=== PATIENT | female | born 1970 | race Caucasian/White ===

== ENCOUNTER → 2018-08-09 13:05 | Outpatient (CLI) | payer SELFPAY ==
[2018-08-09 15:38] LABS: Estradiol 53.4 pg/mL
[2018-08-09 15:50] LABS: Progesterone Level 0.14 ng/mL (See Comment)
== END ==
PROVIDERS: Visit Provider Obstetrics & Gynecology
DX: N94.6 Dysmenorrhea, unspecified (principal)
CPT/HCPCS: 36415; 82670; 84144

== ENCOUNTER → 2019-02-13 | Outpatient (CLI) | payer SELFPAY ==
[2019-02-13 11:05] LABS: Estradiol 92.9 pg/mL; Progesterone Level 9.72 ng/mL (See Comment)
== END | disposition home or self-care (01) ==
LOC: LAB 10:01
PROVIDERS: Family Provider Family Medicine; PCP Family Medicine; Referring Provider Obstetrics & Gynecology; Visit Provider Obstetrics & Gynecology
DX: N93.8 Other specified abnormal uterine and vaginal bleeding (principal); N94.4 Primary dysmenorrhea
CPT/HCPCS: 36415; 82670; 84144

== ENCOUNTER → 2019-07-23 13:22 | Outpatient (CLI) | payer SELFPAY | PROVIDERS: Visit Provider Obstetrics & Gynecology | DX: Z12.4 Encounter for screening for malignant neoplasm of cervix (principal) | CPT/HCPCS: 88175; G0145 ==

== ENCOUNTER → 2019-08-18 15:32 | Outpatient (CLI) | payer SELFPAY ==
--- NOTE | 2019-08-18 15:36 | BI_ITS ---
MAMMOGRAPHY - BILATERAL SCREENING 3-D TOMOSYNTHESIS REASON FOR EXAM: Female, 49 years old. Routine annual screening examination. PERTINENT HISTORY: Family history of breast cancer in mother. Taking progesterone for 15 years. TECHNIQUE: 2-D mammograms and 3-D Tomosynthesis of the breast (s) were performed. CAD was performed. COMPARISON: None. FINDINGS: The breast composition is heterogeneously dense that can obscure small breast masses. 3 cm in diameter partially obscured rounded mass in the central portion of the right breast most likely representing a cyst. Patient should return for compression spot views of this area. Ultrasound will also be needed. Benign calcifications. The left breast is normal. BI/SCREEN MAMM (CAD) W/ABBI BILAT IMPRESSION: 3 cm in diameter circumscribed mass in the central portion of the right breast likely representing a cyst. Patient should return for compression spot views and ultrasound of the right breast.. ASSESSMENT CATEGORY: BIRADS Category 0: Incomplete. Need additional imaging evaluation as above. A letter regarding these results will be sent to the patient by the facility within 30 days. FOLLOW UP RECOMMENDATION: Additional imaging recommended as above. (E) Approximately 10% of breast cancers are not detected by mammography. A normal mammogram should not delay biopsy of a clinically suspicious abnormality. Electronically Signed: Griffin Stanley MD at 17:46 EST , Service support ,
== END ==
PROVIDERS: Family Provider Family Medicine; PCP Family Medicine; Referring Provider Obstetrics & Gynecology; Visit Provider Obstetrics & Gynecology
DX: Z12.31 Encounter for screening mammogram for malignant neoplasm of breast (principal)
CPT/HCPCS: 77063; 77067

== ENCOUNTER → 2019-08-27 14:10 | Outpatient (CLI) | payer SELFPAY ==
--- NOTE | 2019-08-27 14:15 | BI_ITS ---
MAMMOGRAPHY - UNILATERAL DIAGNOSTIC: RIGHT BREAST REASON FOR EXAM: Female, 49 years old. Right breast mass. PERTINENT HISTORY: Mother with breast cancer. TECHNIQUE: Compression views of the right breast were obtained in the mediolateral and oblique views. CAD: Full Field Digital Mammography with Computer Added Detection was performed. COMPARISON: Comparison is made with prior mammogram dated August 18, 2019. FINDINGS: Breast Composition: The breasts are heterogeneously dense, which may obscure small masses. There is evidence of a 3 cm x 3.1 cm well-defined nodule in the retroareolar region of the right breast. Correlation with ultrasound is recommended. No other significant abnormalities are identified. BI/DIAG MAMM W/CAD, UNILAT IMPRESSION: 3 cm x 3.1 cm well-defined nodule in the retroareolar region of the right breast as described. Correlation with ultrasound is recommended. ASSESSMENT CATEGORY: BIRADS Category 0: Incomplete. Need additional imaging evaluation. A letter regarding these results will be sent to the patient by the facility within 30 days. Approximately 10% of breast cancers are not detected by mammography. A normal mammogram should not delay biopsy of a clinically suspicious abnormality. Electronically Signed: Terell Renee, at 15:22 EST , Service support ,
--- NOTE | 2019-08-27 14:15 | US_ITS ---
STUDY: ULTRASOUND BREAST - RIGHT REASON FOR EXAM: Female, 49 years old. Abnormal screening mammogram. TECHNIQUE: Axial and longitudinal images of the RIGHT breast were performed with a high resolution ultrasound transducer. # OF IMAGES: 46 COMPARISON: Comparison is made with prior mammogram done earlier today. FINDINGS: RIGHT Breast: The mammographic abnormality corresponds to a 2.9 cm x 4.3 cm x 0.9 cm cyst at the 11:00 position of the breast at 1 cm from the nipple. There is also evidence of a 5 mm x 4 mm x 9 mm hypoechoic nodular density posterior acoustical shadowing at the 10:00 position breast at 3 cm from nipple. A biopsy is recommended. US/Breast Limited Unilateral IMPRESSION: The palpable abnormality corresponds to a 2.9 cm x 4.3 cm x 0.9 cm cyst at the 11:00 position in the breast at 1 cm from the nipple. Suspicious subcentimeter nodule at the 10:00 position breast at 3 cm from nipple. Biopsy is recommended. ASSESSMENT CATEGORY: BIRADS Category 4: Suspicious - Biopsy Should Be Considered. A letter regarding these results will be sent to the patient by the facility within 30 days. Electronically Signed: Terell Renee, at 15:41 EST , Service support ,
== END ==
PROVIDERS: Family Provider Family Medicine; PCP Family Medicine; Referring Provider Obstetrics & Gynecology; Visit Provider Obstetrics & Gynecology
DX: N63.10 Unspecified lump in the right breast, unspecified quadrant (principal)
CPT/HCPCS: 76642; 77065

== ENCOUNTER → 2019-09-16 08:30 | Outpatient (CLI) | payer SELFPAY ==
--- NOTE | 2019-09-16 | IMM_PTH ---
PATIENT: ALETHA ROBB LOC: [facility] U#:[id number] AGE/SX: 55/F ROOM: RE09/16/[address]: Dr. Wilfredo Thakur MD : 1970 BED: DIS: SPEC #: [id number] RECD: 09/18/19 11:58 STATUS: JORGE REQ #: [id number] DEON: 09/16/19 00:[address]: Wilfredo Thakur DEPT: IMMUNOHISTOCHEMISTRY RECD BY: Virginia Burleson ENTERED: 09/18/19 11:58 SP TYPE: IMMUNO OTHR DR: Dr. Mendez Jay DO Tissues: Right breast, NOS Procedures: CALPONIN-1 (add) FARRELL-2 (add) E-CAD (add) HER2 BRANDON (add) KI-67 (add) P53 (add) MI (add) P40 (add) ER (initial) PHYSICIAN & INSTITUTION [place] [phone] SPECIMEN INFORMATION: Tissue Source: Right breast Clinical Info: Abnormal right breast ultrasound Specimen Number: [id number] CPT code: 72244, 29625 x7, 28924 x3 METHODOLOGY: Deparaffinized sections of prefer/formalin-fixed tissue or PAP/DQ stained slides are incubated with monoclonal/polyclonal antibodies/oligonucleotide probes. Localization is made via biotin free immunoperoxidase method. Appropriate controls are performed and reacted as expected. Results on target cell population are indicated in the following table: RESULTS: ANTIBODY / CLONE RESULT P53 (DO-7) positive, 5% dim Ki-67 (30-9) positive, 5% CK8 (39xiyeM59) positive CK5-6 (D5 & 1684) negative Calponin-1 (TK388Q) negative P40 (BC28) negative E-Cad (ECH-6) positive FARRELL-2 (SP21) positive MORPHOMETRIC ANALYSIS ER (clone 6F11) >95%, strong intensity MI (clone 16/1E2) >95%, strong intensity Her-2Neu (clone CB11) 1+ The prognostic test for HER2 is performed on formalin-fixed paraffin embedded tissue. A 3+ (positive) staining pattern is defined as intense, homogeneous, complete, circumferential membranous staining in >10% of contiguous tumor cells. A similar weak (2+) staining pattern is interpreted as equivocal. TYLER follow-up testing is recommended for all equivocal cases. Positivity/negativity for ER/MI is reported if > or < 1% of the tumor cells are immuno- reactive, respectively. The ASCO/CAP criteria is used for scoring. Reference: Journal of Clinical Oncology, 2013; 31:6254-4330 & 2010; 16:2274-5854. Duration of fixation: 35 Hrs; Sample Adequate: Yes. These assays have not been validated on decalcified tissues. Results should be interpreted with caution given the likelihood of false negativity on decalcified specimens. These tests were developed and their performance characteristics determined by [facility]. They may not have been cleared or approved by the U.S. Food and Drug Administration. The FDA has determined that such clearance or approval is not necessary. The above immunohistochemical/dualISH markers are ordered and reviewed by the Pathologist. INTERPRETATION: Right breast, ultrasound-guided needle core biopsy: Invasive ductal carcinoma, grade 2/3. Positive for estrogen receptors (favorable prognostic indicator). Positive for progesterone receptors (favorable prognostic indicator). Negative for overexpression of [id number]. AM:juhi 09/19/19
--- NOTE | 2019-09-16 | BRBX_PTH ---
PATIENT: ALETHA ROBB LOC: [facility] U#:[id number] AGE/SX: 55/F ROOM: RE09/16/[address]: Dr. Wilfredo Thakur MD : 1970 BED: DIS: SPEC #: [id number] RECD: 09/16/19 11:56 STATUS: JORGE REBetty #: [id number] DEON: 09/16/19 00:[address]: Wilfredo Thakur DEPT: SURGICAL PATHOLOGY RECD BY: Emanuel Villegas ENTERED: 09/16/19 11:57 SP TYPE: BREAST BX OTHR DR: Dr. Mendez Jay DO Tissues: Right breast, NOS Procedures: Surgery Specimen Level IV HEADER OPERATION: Ultrasound-guided needle core biopsy right breast PRE-OP DIAGNOSIS: Abnormal right breast ultrasound TISSUE SUBMITTED: Right breast tissue FIXATION TIME: 35 hours MICROSCOPIC DIAGNOSIS Right breast, ultrasound-guided needle core biopsy: Invasive ductal carcinoma with the following characteristics: Maximal length - 7 millimeters Nuclear grade - 2/3 See comment. AM:juhi 09/18/19 COMMENT ER/LA/Gea6dmq studies are being performed on sections of tumor and the results from this study will be reported separately ([id number]). MICROSCOPIC DESCRIPTION Slides are reviewed. GROSS DESCRIPTION Received in fixative is one container labeled with the patient's name and designated right breast biopsy. The specimen consists of multiple elongated fragments of cervantes-yellow fibroadipose tissue that in aggregate measure 2 x 0.4 x 0.1 cm. The entire specimen is submitted in one cassette. / SJ:juhi 09/16/19 TC:0 CPT: 16746
[2019-09-16 08:23] VITALS: BMI 31.7
== END ==
PROVIDERS: Family Provider Family Medicine; PCP Family Medicine; Referring Provider Surgery; Visit Provider Surgery
DX: R92.8 Other abnormal and inconclusive findings on diagnostic imaging of breast (principal)
CPT/HCPCS: 88305; 88341; 88342

== ENCOUNTER → 2019-09-23 10:01 | Outpatient (CLI) | payer SELFPAY ==
[2019-09-16 08:23] VITALS: BMI 31.7
--- NOTE | 2019-09-16 08:51 | HP_ITS ---
Intake Vital Signs 09/16/19 Height 5 ft 9.5 in 09/16/19 Weight: 218 lb 09/16/19 BMI 31.7 09/16/19 Respiration 18 Intake Visit Reasons: R BRST/KIMAD IV--biopsy !! 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 Is patient in pain?: No Allergies doxycycline Allergy (Mild, Verified 09/16/19 08:24) Unknown prochlorperazine [From Compazine] Allergy (Mild, Verified 09/16/19 08:24) Unknown Medications calcium carb 333 mg-vit D3 133 unit-mag ox 133 mg-zinc oxide 5 mg tab tab PO 09/16/19 [History] dietary supp combo no.21 190 mg-calcium phosphate 85 mg calcium tablet tab PO 09/16/19 [History] estradiol 1 mg-progesterone 100 mg capsule 1 cap PO QPM 09/16/19 [History Confirmed 09/16/19] PFSH Medical History Basal cell carcinoma (Acute) Surgical History History of laparoscopic appendectomy (Acute) Hx laparoscopic cholecystectomy (Acute) S/P Mohs surgery for basal cell carcinoma (Acute) Status post Achilles tendon repair (Acute) Family History Mother Heart disease Hypertension Breast cancer, Onset Age: 74 Father Heart disease Hypertension Social History (Updated 09/16/19 @ 08:58 by Wilfredo Thakur MD) Smoking Status: Never smoker alcohol intake: never HPI HPI HPI: ALETHA ROBB, is a 49 F who presents to the office today for HPI HPI Surgical H&P: Yes HPI: ALETHA ROBB, is a 49 F who presents to the office today for surgical consultation regarding abnormal breast imaging. 49-year-old female. G4, . Menarche at age 10. First child was born when she was 23. She did breast-feed. No history of previous breast biopsies. She states that she has been estrogen dominant. Dr. Hugo has had her on progesterone cream to help treat bleeding and cramping. This is been ongoing for 1 to 1-1/2 years. Family history is notable that her mother had breast cancer in her 70s. She apparently did not of breast cancer. The patient is never had a previous colonoscopy. Routine imaging was obtained below. The patient had no symptoms. The pertinent findings below suggest that she has a cyst in the upper quadrant right breast 11 o'clock position. The cyst measures 2.9 x 4.3 x 0.9 cm. She has a indeterminant density based upon ultrasound at the 10 o'clock position right breast +3 cm. This measures 0.5 x 0.4 x 0.9 cm In addition on mammogram there were microcalcifications laying in the slightly upper lateral position of the right breast BI-RADS Category 4. It is not clear whether the microcalcifications correlate with the density seen on ultrasound at the 10 o'clock position. puter Aided Diagnostic [facility] Imaging Services [address] [place] [address] DIAG MAMM W/CAD, UNILAT MR#: [id number] Name: ALETHA ROBB [facility] #:[id number] : 1970F 49 From: Terell Renee MD PCP:Mendez Jay, Status:[facility] Study:DIAG MAMM W/CAD, UNILAT Date of Exam:08/27/19 Exam#[id number] Ordering Dr: Dianna Hugo MD ADDENDUM by Terell Renee MD on 08/27/19 at 1210 ADDENDUM This is an addendum report. Microcalcifications are seen in the slightly upper lateral portion of the right breast. Biopsy is recommended. BIRADS Category 4. Electronically Signed: Terell Renee, at 15:42 EST , Service support , 08/27/19 1542 Date cc: Mendez Jay DO; Dianna Hugo MD ~* Signed ADDENDUM by Terell Renee MD on 08/27/19 at 1542 BI/DIAG MAMM W/CAD, UNILAT 08/27/19 1549 Date cc: Mendez Jay DO; Dianna Hugo MD ~* Signed MAMMOGRAPHY - UNILATERAL DIAGNOSTIC: RIGHT BREAST REASON FOR EXAM: Female, 49 years old. Right breast mass. PERTINENT HISTORY: Mother with breast cancer. TECHNIQUE: Compression views of the right breast were obtained in the mediolateral and oblique views. CAD: Full Field Digital Mammography with Computer Added Detection was performed. COMPARISON: Comparison is made with prior mammogram dated August 18, 2019. FINDINGS: Breast Composition: The breasts are heterogeneously dense, which may obscure small masses. There is evidence of a 3 cm x 3.1 cm well-defined nodule in the retroareolar region of the right breast. Correlation with ultrasound is recommended. No other significant abnormalities are identified. BI/DIAG MAMM W/CAD, UNILAT IMPRESSION: 3 cm x 3.1 cm well-defined nodule in the retroareolar region of the right breast as described. Correlation with ultrasound is recommended. ASSESSMENT CATEGORY: BIRADS Category 0: Incomplete. Need additional imaging evaluation. A letter regarding these results will be sent to the patient by the facility within 30 days. Approximately 10% of breast cancers are not detected by mammography. A normal mammogram should not delay biopsy of a clinically suspicious abnormality. Electronically Signed: Terell Renee, at 15:22 EST , Service support , CC: Mendez Jay DO; Dianna Hugo MD ~ High School Coach: Signed [facility] Imaging Services [address] [place] [address] Breast Limited Unilateral MR#: [id number] Name: ALETHA ROBB [facility] #:[id number] : 1970F 49 From: Terell Renee MD PCP:Mendez Jay DO Status:REG CLI Study:Breast Limited Unilateral Date of Exam:08/27/19 Exam#[id number] Ordering Dr: Dianna Hugo MD STUDY: ULTRASOUND BREAST - RIGHT REASON FOR EXAM: Female, 49 years old. Abnormal screening mammogram. TECHNIQUE: Axial and longitudinal images of the RIGHT breast were performed with a high resolution ultrasound transducer. # OF IMAGES: 46 COMPARISON: Comparison is made with prior mammogram done earlier today. FINDINGS: RIGHT Breast: The mammographic abnormality corresponds to a 2.9 cm x 4.3 cm x 0.9 cm cyst at the 11:00 position of the breast at 1 cm from the nipple. There is also evidence of a 5 mm x 4 mm x 9 mm hypoechoic nodular density posterior acoustical shadowing at the 10:00 position breast at 3 cm from nipple. A biopsy is recommended. US/Breast Limited Unilateral IMPRESSION: The palpable abnormality corresponds to a 2.9 cm x 4.3 cm x 0.9 cm cyst at the 11:00 position in the breast at 1 cm from the nipple. Suspicious subcentimeter nodule at the 10:00 position breast at 3 cm from nipple. Biopsy is recommended. ASSESSMENT CATEGORY: BIRADS Category 4: Suspicious - Biopsy Should Be Considered. A letter regarding these results will be sent to the patient by the facility within 30 days. Electronically Signed: Terell Renee, at 15:41 EST , Service support , ROS General General: No weight change, appetite, fatigue, colon cancer, breast cancer or weakness HEENT HEENT: No difficulty swallowing, eye injury, eye surgery, swollen glands or hoarseness Endo Endocrine: No thyroid disease, diabetes mellitus, thyroid cancer, Hair loss, heat intolerance or cold intolerance Skin Skin: Yes changing moles; no rash Breast Breast: Yes abnormal mammogram and abnormal US; no left breast lump, right breast lump, nipple discharge, breast pain or breast enlargement Musc Musculoskeletal: No back problems, arthritis, rheumatoid arthritis, gout or joint pain Cardio Cardiovascular: No murmur, pacemaker, heart disease, atrial fibrillation, high blood pressure, heart attack, heart stent, palpitations, shortness of breat with exertion or chest pain Psych Psychiatric: No depression, anxiety or hearing voices Resp Respiratory: No shortness of breath, No sleep apnea, No cough, No COPD, No asthma, No emphysema, No wheezing Gastro Gastrointestinal: No abdominal pain, No nausea or vomiting, No diarrhea, No constipation, No blood in stool, No acid reflux, No hemorrhoids, No ulcers, No gallbladder problem, No black,tarry stools Irineo Hematologic: No blood thinners, No blood disorders, No bleeding, No anemia, No blood clots Neuro Neurologic: No system reviewed and no additional complaints, except as docu, No as per HPI, No abnormal walking, No abnormal hearing, No abnormal movements, No abnormal speech, No behavioral changes, No burning sensations, No confusion, No seizure-like activity, No unsteadiness, No dizziness, No localized weakness, No frequent falls, No headache(s), No lack of coordination, No loss of vision, No memory loss, No numbness, No other visual disturbances, No radiating pain, No restless legs, No sensory deficit, No fainting, No tingling, No tremor(s), No weakness, No other Exam Const General: cooperative, healthy appearing, comfortable, no acute distress Nutritional Appearance: obese Orientation: alert, awake HENNY Head: normal to inspection Chest Breast Palpation: No nipple discharge Other: Right breast: Very diffuse fibrous dense throughout. Nondescript fullness upper outer quadrant right breast. No nipple discharge. No axillary or clavicular adenopathy Left breast: Again diffusely fibrous dense throughout. Unable to palpate any masses. No axillary or clavicular adenopathy Resp Effort & Inspection: normal respiratory effort Auscultation: clear to auscultation bilaterally Cardio Rate: regular rate Rhythm: regular rhythm Heart Sounds: no murmurs GI Palpation: soft, no hepatosplenomegaly Auscultation: normal bowel sounds Extrem General: no calf tenderness bilaterally Psych Affect: normal affect Office Procedures Biopsy Provider Documentation Procedure note Ultrasound-guided needle core biopsy upper outer quadrant right breast 10 o'clock position +3 cm Ultrasound-guided fine-needle aspiration upper outer quadrant right breast 11 o'clock position +1 cm cystic lesion Timeout and informed consent was obtained. The patient taken the procedure room placed upon the table with her right shoulder roll. The upper quadrant right breast was sterilely prepped and draped. The vague triangular density upper inner quadrant right breast 10:00 was position +3 cm was felt to been identified. Under ultrasound guidance 1% lidocaine mixed 50-50 was 0.5% Marcaine was instilled as a local anesthetic. A total of 10 cc was used. A small stab incision was created. A 14-gauge Monopty needle was advanced to prefire depth. Pre-and post fire films were obtained. 6 cores were obtained. A marking clip was left in place. She tolerated the procedure well. The specimens was placed immediately into formalin. Final pathology is pending. She was given activity and wound care instructions. I then inspected the cystic lesion in the upper inner quadrant right breast 11 o'clock position +1 cm. Again local was instilled. A 22-gauge needle was advanced into the lesion and 9 cc of light cervantes fluid was obtained. This was inspected and discarded. The cyst was aspirated to completion. Wilfredo Thakur M.D., F.A.C.S. Biopsy Breast Biopsy: [id number] US Guidance Procedure Time Out Time Out Informed consent given: Yes Consent signed: Yes Time out checklist: patient, procedure, site marked/identified, positioning of patient, supplies available, allergies confirmed, team agrees on procedure Time out staff in room: Yes Time out verified: Yes Time out date: 09/16/19 Time out time: 08:20 Assessment & Plan Problems 1. Abnormal ultrasound of breast R92.8 Plan I have discussed with the patient 3 separate findings. Simple cyst upper outer quadrant right breast 11 o'clock position +1 cm. Benign and aspirated to resolution Vague triangular density seen on ultrasound upper outer quadrant right breast 10 o'clock position +3 cm. Core biopsies performed. Pathology pending. Microcalcifications clustered upper outer quadrant right breast. Stereotactic needle core biopsy recommended and will be scheduled. It is not clear to me but the microcalcifications may actually be in the same location as the 10 o'clock position +3 cm lesion. Subsequent to the stereotactic biopsy the patient will then have additional surgical follow-up. In the interim I have asked her to hold her estradiol progesterone treatment CC: Dr. Hugo and Dr. Mendez Jay \Wilfredo Thakur M.D., F.A.C.S. Orders Orders: Biopsy Today R92.8 Coding Level of Care Code Attention Herbie Diagnoses Abnormal ultrasound of breast R92.8 Additional Codes Biopsy - Breast Biopsy: 04208 US Guidance (57421) 09/16/19 0858 <Electronically signed by Wilfredo wasserman MD> Date _ Wilfredo Thakur MD Patient's ultrasound guided core biopsy shows invasive ductal carcinoma. We will proceed with a stereotactic needle core biopsy to investigate whether the microcalcifications are associated with the previous density identified on ultrasound. Wilfredo Thakur M.D., F.A.C.S.
--- NOTE | 2019-09-23 | BRBX_PTH ---
PATIENT: ALETHA ROBB LOC: [facility] U#:[id number] AGE/SX: 55/F ROOM: RE09/23/[address]: Dr. Wilfredo Thakur MD : 1970 BED: DIS: SPEC #: [id number] RECD: 09/23/19 13:20 STATUS: JORGE JAVIER #: [id number] DEON: 09/23/19 00:[address]: Wilfredo Thakur DEPT: SURGICAL PATHOLOGY RECD BY: Emanuel Villegas ENTERED: 09/23/19 13:20 SP TYPE: BREAST BX OTHR DR: Dr. Mendez Jay DO Tissues: Right breast, NOS Procedures: Surgery Specimen Level IV HEADER OPERATION: Right breast stereotactic biopsy PRE-OP DIAGNOSIS: Microcalcifications upper lateral portion of right breast TISSUE SUBMITTED: Right breast ISCHEMIC TIME: 1 minute FIXATION TIME: 32.5 hours MICROSCOPIC DIAGNOSIS Right breast, microcalcifications upper lateral portion, stereotactic core biopsy: Minute foci of invasive ductal carcinoma (0.2 cm in greatest length). Focal intraductal hyperplasia without atypia and with microcalcifications. See comment. MARY:juhi 09/25/19 COMMENT Please make reference to previous specimen ([id number]) right breast, ultrasound-guided needle core biopsy with diagnosis of invasive ductal carcinoma. Immunohistochemistry ([id number]) supports the above diagnosis. Case has been reviewed in consultation with Dr. Romero who concurs with the above diagnosis. IDC:AM MICROSCOPIC DESCRIPTION Slides are reviewed. GROSS DESCRIPTION Received is one container labeled with the patient's name and not further designated. The specimen consists of multiple irregular and elongated fragments of cervantes-yellow soft tissue that in aggregate measure 3 x 1.7 x 0.2 cm. The specimen is totally submitted in one cassette. / AM:juhi 09/23/19 TC:0 CPT: 11168
--- NOTE | 2019-09-23 | IMM_PTH ---
PATIENT: ALETHA ROBB LOC: [facility] U#:[id number] AGE/SX: 55/F ROOM: RE09/23/[address]: Dr. Wilfredo Thakur MD : 1970 BED: DIS: SPEC #: [id number] RECD: 09/25/19 12:58 STATUS: JORGE REQ #: [id number] DEON: 09/23/19 00:[address]: Wilfredo Thakur DEPT: IMMUNOHISTOCHEMISTRY RECD BY: Virginia Burleson ENTERED: 09/25/19 12:59 SP TYPE: IMMUNO OTHR DR: Dr. Mendez Jay DO Tissues: Right breast, NOS Procedures: Calponin-1(initial) P40 (add) PHYSICIAN & INSTITUTION [place] [id number] SPECIMEN INFORMATION: Tissue Source: Right breast Clinical Info: Microcalcifications upper lateral portion of right breast Specimen Number: [id number] CPT code: 61430, 38415 METHODOLOGY: Deparaffinized sections of prefer/formalin-fixed tissue or PAP/DQ stained slides are incubated with monoclonal/polyclonal antibodies/oligonucleotide probes. Localization is made via biotin free immunoperoxidase method. Appropriate controls are performed and reacted as expected. Results on target cell population are indicated in the following table: RESULTS: ANTIBODY / CLONE RESULT Calponin-1 (CC003X) negative * P40 (BC28) negative * *?Positive in the area of intraductal hyperplasia. These tests were developed and their performance characteristics determined by [facility]. They may not have been cleared or approved by the [place] Food and Drug Administration. The FDA has determined that such clearance or approval is not necessary. The above immunohistochemical/dualISH markers are ordered and reviewed by the Pathologist. INTERPRETATION: Right breast, upper lateral portion microcalcifications, stereotactic core biopsy: Minute foci invasive ductal carcinoma. Focal intraductal hyperplasia without atypia. SJ:juhi 09/26/19
--- NOTE | 2019-09-23 11:25 | PCM.OPRPT ---
Problem List (1) Abnormal mammogram of right breast Status: Acute Report of Operation Date of Procedure: 09/23/19 Pre-Operative Diagnosis: Abnormal mammogram with clustered calcifications upper outer quadrant right breast Post-Operative Diagnosis: Same Surgery/Procedure Performed:: Stereotactic needle core biopsy upper outer quadrant right breast Description of Surgical Findings:: Timeout and informed consent was obtained. 49-year-old female was taken to the stereotactic unit. She was placed prone on the table. The right breast was placed in a lateral medial view. Stereotactic images were obtained. Target on senior vice president & general counsel selected replacing image 2. Digital information obtained on a single target site. Breast was prepped with Betadine. 1% lidocaine was used as local anesthetic. A total 10 cc was used. A small stab incision was created. A 10-gauge resolved needle was advanced to prefire depth. Prefire films were obtained demonstrating adequate localization. The device was fired. 6 cores were obtained. Specimen mammograms were obtained. The microcalcifications present on the pre-film were present within cores 1 and 2. A mini marking clip was left in position at the 11 o'clock position. On fast view demonstrated good localization with a marking clip and absence of the previous calcifications. It is of note that this marking clip is very close to the ultrasound place clip performed because of the ultrasound identified density. She was released from the device. Pressure was held for hemostasis. Steri-Strip Telfa OpSite dressing applied. The specimens were immediately transferred to formalin. The pathology on the ultrasound-guided biopsy is invasive ductal carcinoma. The patient has an office follow-up scheduled to plan definitive approach. It would appear that the area of microcalcifications is in close proximity to the ultrasound identified density. Specimens cores. Drains none. Blood loss minimal. Wilfredo Thakur M.D., F.A.C.S. Type of Anesthesia:: Local
== END ==
PROVIDERS: Family Provider Family Medicine; PCP Family Medicine; Referring Provider Surgery; Visit Provider Surgery
DX: C50.411 Malignant neoplasm of upper-outer quadrant of right female breast (principal); Z80.3 Family history of malignant neoplasm of breast
CPT/HCPCS: 19081; 88305; 88341; 88342; J7050

== ENCOUNTER 2019-10-13 07:29 | Day surgery (SDC) | payer SELFPAY ==
--- NOTE | 2019-09-16 08:51 | HP_ITS ---
Intake Vital Signs 09/16/19 Height 5 ft 9.5 in 09/16/19 Weight: 218 lb 09/16/19 BMI 31.7 09/16/19 Respiration 18 Intake Visit Reasons: R BRST/KIMAD IV--biopsy !! 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 Is patient in pain?: No Allergies doxycycline Allergy (Mild, Verified 09/16/19 08:24) Unknown prochlorperazine [From Compazine] Allergy (Mild, Verified 09/16/19 08:24) Unknown Medications calcium carb 333 mg-vit D3 133 unit-mag ox 133 mg-zinc oxide 5 mg tab tab PO 09/16/19 [History] dietary supp combo no.21 190 mg-calcium phosphate 85 mg calcium tablet tab PO 09/16/19 [History] estradiol 1 mg-progesterone 100 mg capsule 1 cap PO QPM 09/16/19 [History Confirmed 09/16/19] PFSH Medical History Basal cell carcinoma (Acute) Surgical History History of laparoscopic appendectomy (Acute) Hx laparoscopic cholecystectomy (Acute) S/P Mohs surgery for basal cell carcinoma (Acute) Status post Achilles tendon repair (Acute) Family History Mother Heart disease Hypertension Breast cancer, Onset Age: 74 Father Heart disease Hypertension Social History (Updated 09/16/19 @ 08:58 by Wilfredo Thakur MD) Smoking Status: Never smoker alcohol intake: never HPI HPI HPI: ALETHA ROBB, is a 49 F who presents to the office today for HPI HPI Surgical H&P: Yes HPI: ALETHA ROBB, is a 49 F who presents to the office today for surgical consultation regarding abnormal breast imaging. 49-year-old female. G4, . Menarche at age 10. First child was born when she was 23. She did breast-feed. No history of previous breast biopsies. She states that she has been estrogen dominant. Dr. Hugo has had her on progesterone cream to help treat bleeding and cramping. This is been ongoing for 1 to 1-1/2 years. Family history is notable that her mother had breast cancer in her 70s. She apparently did not of breast cancer. The patient is never had a previous colonoscopy. Routine imaging was obtained below. The patient had no symptoms. The pertinent findings below suggest that she has a cyst in the upper quadrant right breast 11 o'clock position. The cyst measures 2.9 x 4.3 x 0.9 cm. She has a indeterminant density based upon ultrasound at the 10 o'clock position right breast +3 cm. This measures 0.5 x 0.4 x 0.9 cm In addition on mammogram there were microcalcifications laying in the slightly upper lateral position of the right breast BI-RADS Category 4. It is not clear whether the microcalcifications correlate with the density seen on ultrasound at the 10 o'clock position. puter Aided Diagnostic [facility] [address] [place] [address] DIAG MAMM W/CAD, UNILAT MR#: [id number] Name: ALETHA ROBB [facility] #:[id number] : 1970F 49 From: Terell Renee MD PCP:Mendez Jay, Status:[facility] Study:DIAG MAMM W/CAD, UNILAT Date of Exam:08/27/19 Exam#[id number] Ordering Dr: Dianna Hugo MD ADDENDUM by Terell Renee MD on 08/27/19 at 3782 ADDENDUM This is an addendum report. Microcalcifications are seen in the slightly upper lateral portion of the right breast. Biopsy is recommended. BIRADS Category 4. Electronically Signed: Terell Renee, at 15:42 EST , Service support , 08/27/19 1542 Date cc: Mendez Jay DO; Dianna Hugo MD ~* Signed ADDENDUM by Terell Renee MD on 08/27/19 at 1542 BI/DIAG MAMM W/CAD, UNILAT 08/27/19 1549 Date cc: Mendez Jay DO; Dianna Hugo MD ~* Signed MAMMOGRAPHY - UNILATERAL DIAGNOSTIC: RIGHT BREAST REASON FOR EXAM: Female, 49 years old. Right breast mass. PERTINENT HISTORY: Mother with breast cancer. TECHNIQUE: Compression views of the right breast were obtained in the mediolateral and oblique views. CAD: Full Field Digital Mammography with Computer Added Detection was performed. COMPARISON: Comparison is made with prior mammogram dated August 18, 2019. FINDINGS: Breast Composition: The breasts are heterogeneously dense, which may obscure small masses. There is evidence of a 3 cm x 3.1 cm well-defined nodule in the retroareolar region of the right breast. Correlation with ultrasound is recommended. No other significant abnormalities are identified. BI/DIAG MAMM W/CAD, UNILAT IMPRESSION: 3 cm x 3.1 cm well-defined nodule in the retroareolar region of the right breast as described. Correlation with ultrasound is recommended. ASSESSMENT CATEGORY: BIRADS Category 0: Incomplete. Need additional imaging evaluation. A letter regarding these results will be sent to the patient by the facility within 30 days. Approximately 10% of breast cancers are not detected by mammography. A normal mammogram should not delay biopsy of a clinically suspicious abnormality. Electronically Signed: Terell Renee, at 15:22 EST , Service support , CC: Mendez Jay DO; Dianna Hugo MD ~ Cold Work Operator: Signed [facility] [address] [place] [address] Breast Limited Unilateral MR#: [id number] Name: ALETHA ROBB [facility] #:[id number] : 1970F 49 From: Terell Renee MD PCP:Mendez Jay DO Status:REG CLI Study:Breast Limited Unilateral Date of Exam:08/27/19 Exam#[id number] Ordering Dr: Dianna Hugo MD STUDY: ULTRASOUND BREAST - RIGHT REASON FOR EXAM: Female, 49 years old. Abnormal screening mammogram. TECHNIQUE: Axial and longitudinal images of the RIGHT breast were performed with a high resolution ultrasound transducer. # OF IMAGES: 46 COMPARISON: Comparison is made with prior mammogram done earlier today. FINDINGS: RIGHT Breast: The mammographic abnormality corresponds to a 2.9 cm x 4.3 cm x 0.9 cm cyst at the 11:00 position of the breast at 1 cm from the nipple. There is also evidence of a 5 mm x 4 mm x 9 mm hypoechoic nodular density posterior acoustical shadowing at the 10:00 position breast at 3 cm from nipple. A biopsy is recommended. US/Breast Limited Unilateral IMPRESSION: The palpable abnormality corresponds to a 2.9 cm x 4.3 cm x 0.9 cm cyst at the 11:00 position in the breast at 1 cm from the nipple. Suspicious subcentimeter nodule at the 10:00 position breast at 3 cm from nipple. Biopsy is recommended. ASSESSMENT CATEGORY: BIRADS Category 4: Suspicious - Biopsy Should Be Considered. A letter regarding these results will be sent to the patient by the facility within 30 days. Electronically Signed: Terell Renee, at 15:41 EST , Service support , ROS General General: No weight change, appetite, fatigue, colon cancer, breast cancer or weakness HEENT HEENT: No difficulty swallowing, eye injury, eye surgery, swollen glands or hoarseness Endo Endocrine: No thyroid disease, diabetes mellitus, thyroid cancer, Hair loss, heat intolerance or cold intolerance Skin Skin: Yes changing moles; no rash Breast Breast: Yes abnormal mammogram and abnormal US; no left breast lump, right breast lump, nipple discharge, breast pain or breast enlargement Musc Musculoskeletal: No back problems, arthritis, rheumatoid arthritis, gout or joint pain Cardio Cardiovascular: No murmur, pacemaker, heart disease, atrial fibrillation, high blood pressure, heart attack, heart stent, palpitations, shortness of breat with exertion or chest pain Psych Psychiatric: No depression, anxiety or hearing voices Resp Respiratory: No shortness of breath, No sleep apnea, No cough, No COPD, No asthma, No emphysema, No wheezing Gastro Gastrointestinal: No abdominal pain, No nausea or vomiting, No diarrhea, No constipation, No blood in stool, No acid reflux, No hemorrhoids, No ulcers, No gallbladder problem, No black,tarry stools Irineo Hematologic: No blood thinners, No blood disorders, No bleeding, No anemia, No blood clots Neuro Neurologic: No system reviewed and no additional complaints, except as docu, No as per HPI, No abnormal walking, No abnormal hearing, No abnormal movements, No abnormal speech, No behavioral changes, No burning sensations, No confusion, No seizure-like activity, No unsteadiness, No dizziness, No localized weakness, No frequent falls, No headache(s), No lack of coordination, No loss of vision, No memory loss, No numbness, No other visual disturbances, No radiating pain, No restless legs, No sensory deficit, No fainting, No tingling, No tremor(s), No weakness, No other Exam Const General: cooperative, healthy appearing, comfortable, no acute distress Nutritional Appearance: obese Orientation: alert, awake HENGA Head: normal to inspection Chest Breast Palpation: No nipple discharge Other: Right breast: Very diffuse fibrous dense throughout. Nondescript fullness upper outer quadrant right breast. No nipple discharge. No axillary or clavicular adenopathy Left breast: Again diffusely fibrous dense throughout. Unable to palpate any masses. No axillary or clavicular adenopathy Resp Effort & Inspection: normal respiratory effort Auscultation: clear to auscultation bilaterally Cardio Rate: regular rate Rhythm: regular rhythm Heart Sounds: no murmurs GI Palpation: soft, no hepatosplenomegaly Auscultation: normal bowel sounds Extrem General: no calf tenderness bilaterally Psych Affect: normal affect Office Procedures Biopsy Provider Documentation Procedure note Ultrasound-guided needle core biopsy upper outer quadrant right breast 10 o'clock position +3 cm Ultrasound-guided fine-needle aspiration upper outer quadrant right breast 11 o'clock position +1 cm cystic lesion Timeout and informed consent was obtained. The patient taken the procedure room placed upon the table with her right shoulder roll. The upper quadrant right breast was sterilely prepped and draped. The vague triangular density upper inner quadrant right breast 10:00 was position +3 cm was felt to been identified. Under ultrasound guidance 1% lidocaine mixed 50-50 was 0.5% Marcaine was instilled as a local anesthetic. A total of 10 cc was used. A small stab incision was created. A 14-gauge Monopty needle was advanced to prefire depth. Pre-and post fire films were obtained. 6 cores were obtained. A marking clip was left in place. She tolerated the procedure well. The specimens was placed immediately into formalin. Final pathology is pending. She was given activity and wound care instructions. I then inspected the cystic lesion in the upper inner quadrant right breast 11 o'clock position +1 cm. Again local was instilled. A 22-gauge needle was advanced into the lesion and 9 cc of light cervantes fluid was obtained. This was inspected and discarded. The cyst was aspirated to completion. Wilfredo Thakur M.D., F.A.C.S. Biopsy Breast Biopsy: [id number] US Guidance Procedure Time Out Time Out Informed consent given: Yes Consent signed: Yes Time out checklist: patient, procedure, site marked/identified, positioning of patient, supplies available, allergies confirmed, team agrees on procedure Time out staff in room: Yes Time out verified: Yes Time out date: 09/16/19 Time out time: 08:20 Assessment & Plan Problems 1. Abnormal ultrasound of breast R92.8 Plan I have discussed with the patient 3 separate findings. Simple cyst upper outer quadrant right breast 11 o'clock position +1 cm. Benign and aspirated to resolution Vague triangular density seen on ultrasound upper outer quadrant right breast 10 o'clock position +3 cm. Core biopsies performed. Pathology pending. Microcalcifications clustered upper outer quadrant right breast. Stereotactic needle core biopsy recommended and will be scheduled. It is not clear to me but the microcalcifications may actually be in the same location as the 10 o'clock position +3 cm lesion. Subsequent to the stereotactic biopsy the patient will then have additional surgical follow-up. In the interim I have asked her to hold her estradiol progesterone treatment CC: Dr. Hugo and Dr. Mendez Jay \Wilfredo Thakur M.D., F.A.C.S. Orders Orders: Biopsy Today R92.8 Coding Level of Care Code Attention Herbie Diagnoses Abnormal ultrasound of breast R92.8 Additional Codes Biopsy - Breast Biopsy: 24907 US Guidance (16046) 09/16/19 0858 <Electronically signed by Wilfredo wasserman MD> Date _ Wilfredo Thakur MD
--- NOTE | 2019-09-16 08:51 | HP_ITS ---
Intake Vital Signs 09/16/19 Height 5 ft 9.5 in 09/16/19 Weight: 218 lb 09/16/19 BMI 31.7 09/16/19 Respiration 18 Intake Visit Reasons: R BRST/KIMAD IV--biopsy !! Gandy Dancer Required: No Is patient in pain?: No Allergies doxycycline Allergy (Mild, Verified 09/16/19 08:24) Unknown prochlorperazine [From Compazine] Allergy (Mild, Verified 09/16/19 08:24) Unknown Medications calcium carb 333 mg-vit D3 133 unit-mag ox 133 mg-zinc oxide 5 mg tab tab PO 09/16/19 [History] dietary supp combo no.21 190 mg-calcium phosphate 85 mg calcium tablet tab PO 09/16/19 [History] estradiol 1 mg-progesterone 100 mg capsule 1 cap PO QPM 09/16/19 [History Confirmed 09/16/19] PFSH Medical History Basal cell carcinoma (Acute) Surgical History History of laparoscopic appendectomy (Acute) Hx laparoscopic cholecystectomy (Acute) S/P Mohs surgery for basal cell carcinoma (Acute) Status post Achilles tendon repair (Acute) Family History Mother Heart disease Hypertension Breast cancer, Onset Age: 74 Father Heart disease Hypertension Social History (Updated 09/16/19 @ 08:58 by Wilfredo Thakur MD) Smoking Status: Never smoker alcohol intake: never HPI HPI HPI: ALETHA ROBB, is a 49 F who presents to the office today for HPI HPI Surgical H&P: Yes HPI: ALETHA ROBB, is a 49 F who presents to the office today for surgical consultation regarding abnormal breast imaging. 49-year-old female. G4, . Menarche at age 10. First child was born when she was 23. She did breast-feed. No history of previous breast biopsies. She states that she has been estrogen dominant. Dr. Hugo has had her on progesterone cream to help treat bleeding and cramping. This is been ongoing for 1 to 1-1/2 years. Family history is notable that her mother had breast cancer in her 70s. She apparently did not of breast cancer. The patient is never had a previous colonoscopy. Routine imaging was obtained below. The patient had no symptoms. The pertinent findings below suggest that she has a cyst in the upper quadrant right breast 11 o'clock position. The cyst measures 2.9 x 4.3 x 0.9 cm. She has a indeterminant density based upon ultrasound at the 10 o'clock position right breast +3 cm. This measures 0.5 x 0.4 x 0.9 cm In addition on mammogram there were microcalcifications laying in the slightly upper lateral position of the right breast BI-RADS Category 4. It is not clear whether the microcalcifications correlate with the density seen on ultrasound at the 10 o'clock position. puter Aided Diagnostic [facility] [address] [place] [address] DIAG MAMM W/CAD, UNILAT MR#: [id number] Name: ALETHA ROBB [facility] #:[id number] : 1970F 49 From: Terell Renee MD PCP:Mendez Jay, [facility] Study:DIAG MAMM W/CAD, UNILAT Date of Exam:08/27/19 Exam#[id number] Ordering Dr: Dianna Hugo MD ADDENDUM by Terell Renee MD on 08/27/19 at 2947 ADDENDUM This is an addendum report. Microcalcifications are seen in the slightly upper lateral portion of the right breast. Biopsy is recommended. BIRADS Category 4. Electronically Signed: Terell Renee, at 15:42 EST , Service support , 08/27/19 1542 Date cc: Mendez Jay DO; Dianna Hugo MD ~* Signed ADDENDUM by Terell Renee MD on 08/27/19 at 1542 BI/DIAG MAMM W/CAD, UNILAT 08/27/19 1549 Date cc: Mendez Jya DO; Dianna Hugo MD ~* Signed MAMMOGRAPHY - UNILATERAL DIAGNOSTIC: RIGHT BREAST REASON FOR EXAM: Female, 49 years old. Right breast mass. PERTINENT HISTORY: Mother with breast cancer. TECHNIQUE: Compression views of the right breast were obtained in the mediolateral and oblique views. CAD: Full Field Digital Mammography with Computer Added Detection was performed. COMPARISON: Comparison is made with prior mammogram dated August 18, 2019. FINDINGS: Breast Composition: The breasts are heterogeneously dense, which may obscure small masses. There is evidence of a 3 cm x 3.1 cm well-defined nodule in the retroareolar region of the right breast. Correlation with ultrasound is recommended. No other significant abnormalities are identified. BI/DIAG MAMM W/CAD, UNILAT IMPRESSION: 3 cm x 3.1 cm well-defined nodule in the retroareolar region of the right breast as described. Correlation with ultrasound is recommended. ASSESSMENT CATEGORY: BIRADS Category 0: Incomplete. Need additional imaging evaluation. A letter regarding these results will be sent to the patient by the facility within 30 days. Approximately 10% of breast cancers are not detected by mammography. A normal mammogram should not delay biopsy of a clinically suspicious abnormality. Electronically Signed: Terell Renee, at 15:22 EST , Service support , CC: Mendez Jay DO; Dianna Hugo MD ~ Day Care Attendant: Signed [facility] [address] [place] [address] Breast Limited Unilateral MR#: [id number] Name: ALETHA ROBB [facility] #:[id number] : 1970F 49 From: Terell Renee MD PCP:Mendez aJy DO Status:REG CLI Study:Breast Limited Unilateral Date of Exam:08/27/19 Exam#[id number] Ordering Dr: Dianna Hugo MD STUDY: ULTRASOUND BREAST - RIGHT REASON FOR EXAM: Female, 49 years old. Abnormal screening mammogram. TECHNIQUE: Axial and longitudinal images of the RIGHT breast were performed with a high resolution ultrasound transducer. # OF IMAGES: 46 COMPARISON: Comparison is made with prior mammogram done earlier today. FINDINGS: RIGHT Breast: The mammographic abnormality corresponds to a 2.9 cm x 4.3 cm x 0.9 cm cyst at the 11:00 position of the breast at 1 cm from the nipple. There is also evidence of a 5 mm x 4 mm x 9 mm hypoechoic nodular density posterior acoustical shadowing at the 10:00 position breast at 3 cm from nipple. A biopsy is recommended. US/Breast Limited Unilateral IMPRESSION: The palpable abnormality corresponds to a 2.9 cm x 4.3 cm x 0.9 cm cyst at the 11:00 position in the breast at 1 cm from the nipple. Suspicious subcentimeter nodule at the 10:00 position breast at 3 cm from nipple. Biopsy is recommended. ASSESSMENT CATEGORY: BIRADS Category 4: Suspicious - Biopsy Should Be Considered. A letter regarding these results will be sent to the patient by the facility within 30 days. Electronically Signed: Terell Renee, at 15:41 EST , Service support , ROS General General: No weight change, appetite, fatigue, colon cancer, breast cancer or weakness HEENT HEENT: No difficulty swallowing, eye injury, eye surgery, swollen glands or hoarseness Endo Endocrine: No thyroid disease, diabetes mellitus, thyroid cancer, Hair loss, heat intolerance or cold intolerance Skin Skin: Yes changing moles; no rash Breast Breast: Yes abnormal mammogram and abnormal US; no left breast lump, right breast lump, nipple discharge, breast pain or breast enlargement Musc Musculoskeletal: No back problems, arthritis, rheumatoid arthritis, gout or joint pain Cardio Cardiovascular: No murmur, pacemaker, heart disease, atrial fibrillation, high blood pressure, heart attack, heart stent, palpitations, shortness of breat with exertion or chest pain Psych Psychiatric: No depression, anxiety or hearing voices Resp Respiratory: No shortness of breath, No sleep apnea, No cough, No COPD, No asthma, No emphysema, No wheezing Gastro Gastrointestinal: No abdominal pain, No nausea or vomiting, No diarrhea, No constipation, No blood in stool, No acid reflux, No hemorrhoids, No ulcers, No gallbladder problem, No black,tarry stools Irineo Hematologic: No blood thinners, No blood disorders, No bleeding, No anemia, No blood clots Neuro Neurologic: No system reviewed and no additional complaints, except as docu, No as per HPI, No abnormal walking, No abnormal hearing, No abnormal movements, No abnormal speech, No behavioral changes, No burning sensations, No confusion, No seizure-like activity, No unsteadiness, No dizziness, No localized weakness, No frequent falls, No headache(s), No lack of coordination, No loss of vision, No memory loss, No numbness, No other visual disturbances, No radiating pain, No restless legs, No sensory deficit, No fainting, No tingling, No tremor(s), No weakness, No other Exam Const General: cooperative, healthy appearing, comfortable, no acute distress Nutritional Appearance: obese Orientation: alert, awake HENAZ Head: normal to inspection Chest Breast Palpation: No nipple discharge Other: Right breast: Very diffuse fibrous dense throughout. Nondescript fullness upper outer quadrant right breast. No nipple discharge. No axillary or clavicular adenopathy Left breast: Again diffusely fibrous dense throughout. Unable to palpate any masses. No axillary or clavicular adenopathy Resp Effort & Inspection: normal respiratory effort Auscultation: clear to auscultation bilaterally Cardio Rate: regular rate Rhythm: regular rhythm Heart Sounds: no murmurs GI Palpation: soft, no hepatosplenomegaly Auscultation: normal bowel sounds Extrem General: no calf tenderness bilaterally Psych Affect: normal affect Office Procedures Biopsy Provider Documentation Procedure note Ultrasound-guided needle core biopsy upper outer quadrant right breast 10 o'clock position +3 cm Ultrasound-guided fine-needle aspiration upper outer quadrant right breast 11 o'clock position +1 cm cystic lesion Timeout and informed consent was obtained. The patient taken the procedure room placed upon the table with her right shoulder roll. The upper quadrant right breast was sterilely prepped and draped. The vague triangular density upper inner quadrant right breast 10:00 was position +3 cm was felt to been identified. Under ultrasound guidance 1% lidocaine mixed 50-50 was 0.5% Marcaine was instilled as a local anesthetic. A total of 10 cc was used. A small stab incision was created. A 14-gauge Monopty needle was advanced to prefire depth. Pre-and post fire films were obtained. 6 cores were obtained. A marking clip was left in place. She tolerated the procedure well. The specimens was placed immediately into formalin. Final pathology is pending. She was given activity and wound care instructions. I then inspected the cystic lesion in the upper inner quadrant right breast 11 o'clock position +1 cm. Again local was instilled. A 22-gauge needle was advanced into the lesion and 9 cc of light cervantes fluid was obtained. This was inspected and discarded. The cyst was aspirated to completion. Wilfredo Thakur M.D., F.A.C.S. Biopsy Breast Biopsy: [id number] US Guidance Procedure Time Out Time Out Informed consent given: Yes Consent signed: Yes Time out checklist: patient, procedure, site marked/identified, positioning of patient, supplies available, allergies confirmed, team agrees on procedure Time out staff in room: Yes Time out verified: Yes Time out date: 09/16/19 Time out time: 08:20 Assessment & Plan Problems 1. Abnormal ultrasound of breast R92.8 Plan I have discussed with the patient 3 separate findings. Simple cyst upper outer quadrant right breast 11 o'clock position +1 cm. Benign and aspirated to resolution Vague triangular density seen on ultrasound upper outer quadrant right breast 10 o'clock position +3 cm. Core biopsies performed. Pathology pending. Microcalcifications clustered upper outer quadrant right breast. Stereotactic needle core biopsy recommended and will be scheduled. It is not clear to me but the microcalcifications may actually be in the same location as the 10 o'clock position +3 cm lesion. Subsequent to the stereotactic biopsy the patient will then have additional surgical follow-up. In the interim I have asked her to hold her estradiol progesterone treatment CC: Dr. Hugo and Dr. Mendez Jay \Wilfredo Thakur M.D., F.A.C.S. Orders Orders: Biopsy Today R92.8 Coding Level of Care Code Attention Herbie Diagnoses Abnormal ultrasound of breast R92.8 Additional Codes Biopsy - Breast Biopsy: 15545 US Guidance (04451) 09/16/19 0858 <Electronically signed by Wilfredo wasserman MD> Date _ Wilfredo Thakur MD
--- NOTE | 2019-09-30 11:33 | HP_ITS ---
Intake Vital Signs 09/30/19 Height 5 ft 9.5 in 09/30/19 Weight: 218 lb 09/30/19 BMI 31.7 09/30/19 BP 165/85 H 09/30/19 Blood Pressure Location Rt brachial 09/30/19 Position Sitting 09/30/19 Respiration 18 09/30/19 BMI 31.7 Intake Visit Reasons: F/U BREAST BIOPSY RESULTS Cloth Picker Required: No Is patient in pain?: No Allergies doxycycline Allergy (Mild, Verified 09/30/19 13:35) Unknown prochlorperazine [From Compazine] Allergy (Mild, Verified 09/30/19 13:35) Unknown Medications calcium carb 333 mg-vit D3 133 unit-mag ox 133 mg-zinc oxide 5 mg tab tab PO 09/16/19 [History Confirmed 09/30/19] dietary supp combo no.21 190 mg-calcium phosphate 85 mg calcium tablet tab PO 09/16/19 [History Confirmed 09/30/19] estradiol 1 mg-progesterone 100 mg capsule 1 cap PO QPM 09/16/19 [History Confirmed 09/30/19] PFSH Medical History Abnormal ultrasound of breast (Acute) Basal cell carcinoma (Acute) Surgical History History of laparoscopic appendectomy (Acute) Hx laparoscopic cholecystectomy (Acute) S/P Mohs surgery for basal cell carcinoma (Acute) Status post Achilles tendon repair (Acute) Social History (Updated 09/30/19 @ 14:47 by Wilfredo Thakur MD) Smoking Status: Never smoker alcohol intake: never HPI HPI HPI: ALETHA ROBB, is a 49 F who presents to the office today for HPI HPI Surgical H&P: Yes HPI: ALETHA ROBB, is a 49 F who presents to the office today for surgical follow-up consultation regarding her right breast findings. She initially palpated a right breast mass. Imaging suggested at the area that she was feeling was a large simple cyst. But on ultrasound there was a density identified upper outer quadrant right breast 10 o'clock position 9 mm in greatest dimension. On review of the mammogram there were felt to be some clustered calcifications in the upper outer right breast as well. I performed a ultrasound-guided aspiration of her cyst. I performed an ultrasound-guided needle core biopsy of the ultrasonographic density upper outer quadrant right breast 10 o'clock position +3 cm. I then performed a stereotactic needle core biopsy of the microcalcifications upper outer quadrant right breast. The ultrasound density is invasive ductal carcinoma with pathology below. The microcalcifications show a minute fragment of invasive ductal carcinoma as well [facility] Medical Records Department [address] [place] [address] Operative Report 09/23/19 1125 MR#: [id number] Name:ALETHA ROBB ERe #:[id number] : 1970 49From: Wilfredo Thakur MD PCP:Mendez Jay, Status:REG CLY Location: [facility] Problem List (1) Abnormal mammogram of right breast Status: Acute Report of Operation Date of Procedure: 09/23/19 Pre-Operative Diagnosis: Abnormal mammogram with clustered calcifications upper outer quadrant right breast Post-Operative Diagnosis: Same Surgery/Procedure Performed:: Stereotactic needle core biopsy upper outer quadrant right breast Description of Surgical Findings:: Timeout and informed consent was obtained. 49-year-old female was taken to the stereotactic unit. She was placed prone on the table. The right breast was placed in a lateral medial view. Stereotactic images were obtained. Target on retail director selected replacing image 2. Digital information obtained on a single target site. Breast was prepped with Betadine. 1% lidocaine was used as local anesthetic. A total 10 cc was used. A small stab incision was created. A 10- gauge resolved needle was advanced to prefire depth. Prefire films were obtained demonstrating adequate localization. The device was fired. 6 cores were obtained. Specimen mammograms were obtained. The microcalcifications present on the pre-film were present within cores 1 and 2. A mini marking clip was left in position at the 11 o'clock position. On fast view demonstrated good localization with a marking clip and absence of the previous calcifications. It is of note that this marking clip is very close to the ultrasound place clip performed because of the ultrasound identified density. She was released from the device. Pressure was held for hemostasis. Steri-Strip Telfa OpSite dressing applied. The specimens were immediately transferred to formalin. The pathology on the ultrasound-guided biopsy is invasive ductal carcinoma. The patient has an office follow-up scheduled to plan definitive approach. It would appear that the area of microcalcifications is in close proximity to the ultrasound identified density. Specimens cores. Drains none. Blood loss minimal. Wilfredo Thakur M.D., F.A.C.S. Type of Anesthesia:: Local 09/23/19 1130<Electronically signed by Wilfredo Thakur MD> Date Wilfredo Thakur MD CC: Mendez Jay DO; Wilfredo Thakur MD ~ Signed Stereo Bx results: Right breast, upper lateral portion microcalcifications, stereotactic core biopsy: Minute foci invasive ductal carcinoma.Focal intraductal hyperplasia without atypia U/S Bx results Right breast, ultrasound-guided needle core biopsy: Invasive ductal carcinoma with the following characteristics:Maximal length ?7 millimeters Nuclear grade ?2/3 Estrogen receptor greater than 95% Progesterone receptor greater than 95% HER-2/darren 1+ Intake Visit Reasons: R BRST/CARLOS IV--biopsy !! Cloth Picker Required: No Is patient in pain?: No Allergies doxycycline Allergy (Mild, Verified 09/16/19 08:24) Unknown prochlorperazine [From Compazine] Allergy (Mild, Verified 09/16/19 08:24) Unknown Medications calcium carb 333 mg-vit D3 133 unit-mag ox 133 mg-zinc oxide 5 mg tab tab PO 09/16/19 [History] dietary supp combo no.21 190 mg-calcium phosphate 85 mg calcium tablet tab PO 09/16/19 [History] estradiol 1 mg-progesterone 100 mg capsule 1 cap PO QPM 09/16/19 [History Confirmed 09/16/19] PFSH Medical History Basal cell carcinoma (Acute) Surgical History History of laparoscopic appendectomy (Acute) Hx laparoscopic cholecystectomy (Acute) S/P Mohs surgery for basal cell carcinoma (Acute) Status post Achilles tendon repair (Acute) Family History Mother Heart disease Hypertension Breast cancer, Onset Age: 74 Father Heart disease Hypertension Social History (Updated 09/16/19 @ 08:58 by Wilfredo Thakur MD) Smoking Status: Never smoker alcohol intake: never HPI HPI HPI: ALETHA ROBB, is a 49 F who presents to the office today for HPI HPI Surgical H&P: Yes HPI: ALETHA ROBB, is a 49 F who presents to the office today for surgical consultation regarding abnormal breast imaging. 49-year-old female. G4, . Menarche at age 10. First child was born when she was 23. She did breast-feed. No history of previous breast biopsies. She states that she has been estrogen dominant. Dr. Hugo has had her on progesterone cream to help treat bleeding and cramping. This is been ongoing for 1 to 1-1/2 years. Family history is notable that her mother had breast cancer in her 70s. She apparently did not of breast cancer. The patient is never had a previous colonoscopy. Routine imaging was obtained below. The patient had no symptoms. The pertinent findings below suggest that she has a cyst in the upper quadrant right breast 11 o'clock position. The cyst measures 2.9 x 4.3 x 0.9 cm. She has a indeterminant density based upon ultrasound at the 10 o'clock position right breast +3 cm. This measures 0.5 x 0.4 x 0.9 cm In addition on mammogram there were microcalcifications laying in the slightly upper lateral position of the right breast BI-RADS Category 4. It is not clear whether the microcalcifications correlate with the density seen on ultrasound at the 10 o'clock position. puter Aided Diagnostic [facility] Imaging Services [address] [place] [address] DIAG MAMM W/CAD, UNILAT MR#: [id number] Name: ALETHA ROBB [facility] #:[id number] : 1970F 49 From: Terell Renee MD PCP:Mendez Jay DO Status:[facility] Study:DIAG MAMM W/CAD, UNILAT Date of Exam:08/27/19 Exam#[id number] Ordering Dr: Dianna Hugo MD ADDENDUM by Terell Renee MD on 08/27/19 at 1542 ADDENDUM This is an addendum report. Microcalcifications are seen in the slightly upper lateral portion of the right breast. Biopsy is recommended. BIRADS Category 4. Electronically Signed: Terell Renee, at 15:42 EST , Service support , 08/27/19 1542 Date cc: Mendez Jay DO; Dianna Hugo MD ~* Signed ADDENDUM by Terell Renee MD on 08/27/19 at 1542 BI/DIAG MAMM W/CAD, UNILAT 08/27/19 1549 Date cc: Mendez Jay DO; Dianna Hugo MD ~* Signed MAMMOGRAPHY - UNILATERAL DIAGNOSTIC: RIGHT BREAST REASON FOR EXAM: Female, 49 years old. Right breast mass. PERTINENT HISTORY: Mother with breast cancer. TECHNIQUE: Compression views of the right breast were obtained in the mediolateral and oblique views. CAD: Full Field Digital Mammography with Computer Added Detection was performed. COMPARISON: Comparison is made with prior mammogram dated August 18, 2019. FINDINGS: Breast Composition: The breasts are heterogeneously dense, which may obscure small masses. There is evidence of a 3 cm x 3.1 cm well-defined nodule in the retroareolar region of the right breast. Correlation with ultrasound is recommended. No other significant abnormalities are identified. BI/DIAG MAMM W/CAD, UNILAT IMPRESSION: 3 cm x 3.1 cm well-defined nodule in the retroareolar region of the right breast as described. Correlation with ultrasound is recommended. ASSESSMENT CATEGORY: BIRADS Category 0: Incomplete. Need additional imaging evaluation. A letter regarding these results will be sent to the patient by the facility within 30 days. Approximately 10% of breast cancers are not detected by mammography. A normal mammogram should not delay biopsy of a clinically suspicious abnormality. Electronically Signed: Terell Renee, at 15:22 EST , Service support , CC: Mendez Jay DO; Dianna Hugo MD ~ Rn Medical Surgical: Signed [facility] Imaging Services [address] [place] [id number] Breast Limited Unilateral MR#: [id number] Name: ALETHA ROBB [facility] #:[id number] : 1970 49 From: Terell Renee MD PCP:Mendez Jay DO Status:[facility] CLI Study:Breast Limited Unilateral Date of Exam:08/27/19 Exam#[id number] Ordering Dr: Dianna Hugo MD STUDY: ULTRASOUND BREAST - RIGHT REASON FOR EXAM: Female, 49 years old. Abnormal screening mammogram. TECHNIQUE: Axial and longitudinal images of the RIGHT breast were performed with a high resolution ultrasound transducer. # OF IMAGES: [id number] COMPARISON: Comparison is made with prior mammogram done earlier today. FINDINGS: RIGHT Breast: The mammographic abnormality corresponds to a 2.9 cm x 4.3 cm x 0.9 cm cyst at the 11:00 position of the breast at 1 cm from the nipple. There is also evidence of a 5 mm x 4 mm x 9 mm hypoechoic nodular density posterior acoustical shadowing at the 10:00 position breast at 3 cm from nipple. A biopsy is recommended. US/Breast Limited Unilateral IMPRESSION: The palpable abnormality corresponds to a 2.9 cm x 4.3 cm x 0.9 cm cyst at the 11:00 position in the breast at 1 cm from the nipple. Suspicious subcentimeter nodule at the 10:00 position breast at 3 cm from nipple. Biopsy is recommended. ASSESSMENT CATEGORY: BIRADS Category 4: Suspicious - Biopsy Should Be Considered. A letter regarding these results will be sent to the patient by the facility within 30 days. Electronically Signed: Terell Thelma, at 15:41 EST , Service support , ROS General General: No weight change, appetite, fatigue, colon cancer, breast cancer or weakness HEENT HEENT: No difficulty swallowing, eye injury, eye surgery, swollen glands or hoarseness Endo Endocrine: No thyroid disease, diabetes mellitus, thyroid cancer, Hair loss, heat intolerance or cold intolerance Skin Skin: Yes changing moles; no rash Breast Breast: Yes abnormal mammogram and abnormal US; no left breast lump, right breast lump, nipple discharge, breast pain or breast enlargement Musc Musculoskeletal: No back problems, arthritis, rheumatoid arthritis, gout or joint pain Cardio Cardiovascular: No murmur, pacemaker, heart disease, atrial fibrillation, high blood pressure, heart attack, heart stent, palpitations, shortness of breat with exertion or chest pain Psych Psychiatric: No depression, anxiety or hearing voices Resp Respiratory: No shortness of breath, No sleep apnea, No cough, No COPD, No asthma, No emphysema, No wheezing Gastro Gastrointestinal: No abdominal pain, No nausea or vomiting, No diarrhea, No constipation, No blood in stool, No acid reflux, No hemorrhoids, No ulcers, No gallbladder problem, No black,tarry stools Irineo Hematologic: No blood thinners, No blood disorders, No bleeding, No anemia, No blood clots Neuro Neurologic: No system reviewed and no additional complaints, except as docu, No as per HPI, No abnormal walking, No abnormal hearing, No abnormal movements, No abnormal speech, No behavioral changes, No burning sensations, No confusion, No seizure-like activity, No unsteadiness, No dizziness, No localized weakness, No frequent falls, No headache(s), No lack of coordination, No loss of vision, No memory loss, No numbness, No other visual disturbances, No radiating pain, No restless legs, No sensory deficit, No fainting, No tingling, No tremor(s), No weakness, No other Exam Const General: cooperative, healthy appearing, comfortable, no acute distress Nutritional Appearance: obese Orientation: alert, awake [facility] Head: normal to inspection Chest Breast Palpation: No nipple discharge Other: Right breast: Very diffuse fibrous dense throughout. Nondescript fullness upper outer quadrant right breast. No nipple discharge. No axillary or clavicular adenopathy Left breast: Again diffusely fibrous dense throughout. Unable to palpate any masses. No axillary or clavicular adenopathy Resp Effort & Inspection: normal respiratory effort Auscultation: clear to auscultation bilaterally Cardio Rate: regular rate Rhythm: regular rhythm Heart Sounds: no murmurs GI Palpation: soft, no hepatosplenomegaly Auscultation: normal bowel sounds Extrem General: no calf tenderness bilaterally Psych Affect: normal affect Office Procedures Biopsy Provider Documentation Procedure note Ultrasound-guided needle core biopsy upper outer quadrant right breast 10 o'clock position +3 cm Ultrasound-guided fine-needle aspiration upper outer quadrant right breast 11 o'clock position +1 cm cystic lesion Timeout and informed consent was obtained. The patient taken the procedure room placed upon the table with her right shoulder roll. The upper quadrant right breast was sterilely prepped and draped. The vague triangular density upper inner quadrant right breast 10:00 was position +3 cm was felt to been identified. Under ultrasound guidance 1% lidocaine mixed 50-50 was 0.5% Marcaine was instilled as a local anesthetic. A total of 10 cc was used. A small stab incision was created. A 14-gauge Monopty needle was advanced to prefire depth. Pre-and post fire films were obtained. 6 cores were obtained. A marking clip was left in place. She tolerated the procedure well. The specimens was placed immediately into formalin. Final pathology is pending. She was given activity and wound care instructions. I then inspected the cystic lesion in the upper inner quadrant right breast 11 o'clock position +1 cm. Again local was instilled. A 22-gauge needle was advanced into the lesion and 9 cc of light cervantes fluid was obtained. This was inspected and discarded. The cyst was aspirated to completion. Wilfredo Thakur M.D., F.A.C.S. Biopsy Breast Biopsy: [id number] US Guidance Procedure Time Out Time Out Informed consent given: Yes Consent signed: Yes Time out checklist: patient, procedure, site marked/identified, positioning of patient, supplies available, allergies confirmed, team agrees on procedure Time out staff in room: Yes Time out verified: Yes Time out date: 09/16/19 Time out time: 08:20 Assessment & Plan Problems 1. Abnormal ultrasound of breast R92.8 Plan I have discussed with the patient 3 separate findings. Simple cyst upper outer quadrant right breast 11 o'clock position +1 cm. Benign and aspirated to resolution Vague triangular density seen on ultrasound upper outer quadrant right breast 10 o'clock position +3 cm. Core biopsies performed. Pathology pending. Microcalcifications clustered upper outer quadrant right breast. Stereotactic needle core biopsy recommended and will be scheduled. It is not clear to me but the microcalcifications may actually be in the same location as the 10 o'clock position +3 cm lesion. Subsequent to the stereotactic biopsy the patient will then have additional surgical follow-up. In the interim I have asked her to hold her estradiol progesterone treatment CC: Dr. Hugo and Dr. Mendez Jay \Wilfredo Thakur M.D., F.A.C.S. Orders Orders: Biopsy Today R92.8 Coding Level of Care Code Attention Sill Worker Diagnoses Abnormal ultrasound of breast R92.8 Additional Codes Biopsy - Breast Biopsy: [id number] US Guidance ([id number]) 09/16/19 0858<Electronically signed by Wilfredo Thakur MD> Date Wilfredo Thakur MD ROS General General: No weight change, appetite, fatigue, colon cancer, breast cancer or weakness HEENT HEENT: No difficulty swallowing, eye injury, eye surgery, swollen glands or hoarseness Endo Endocrine: No thyroid disease, diabetes mellitus, thyroid cancer, Hair loss, heat intolerance or cold intolerance Skin Skin: Yes changing moles; no rash Breast Breast: Yes abnormal mammogram and abnormal US; no left breast lump, right breast lump, nipple discharge, breast pain or breast enlargement Musc Musculoskeletal: No back problems, arthritis, rheumatoid arthritis, gout or joint pain Cardio Cardiovascular: No murmur, pacemaker, heart disease, atrial fibrillation, high blood pressure, heart attack, heart stent, palpitations, shortness of breat with exertion or chest pain Psych Psychiatric: No depression, anxiety or hearing voices Resp Respiratory: No shortness of breath, No sleep apnea, No cough, No COPD, No asthma, No emphysema, No wheezing Gastro Gastrointestinal: No abdominal pain, No nausea or vomiting, No diarrhea, No constipation, No blood in stool, No acid reflux, No hemorrhoids, No ulcers, No gallbladder problem, No black,tarry stools Irineo Hematologic: No blood thinners, No blood disorders, No bleeding, No anemia, No blood clots Neuro Neurologic: No weakness Exam Chest Breast Palpation: No nipple discharge Cardio Heart Sounds: no murmurs Assessment & Plan Problems 1. Malignant neoplasm of upper-outer quadrant of right breast in female, estrogen receptor positive C50.411; Z17.0 Plan Upper outer quadrant right breast cancer with 2 areas of interest in reasonable close proximity to each other. A density identified with ultrasound and microcalcifications identified with mammography. Marking clips are left in position. I propose for the patient a stereotactic wire localization of each of these areas followed by nuclear tracer/blue dye right axillary sentinel lymph node biopsy and double wire localized upper outer quadrant right breast lumpectomy. I have discussed technique, benefit, risks, alternatives. The patient's suggested that they have heard of a cancer treatment center in [place] that is not FDA approved that they are considering.. They have also heard good things about [facility] oncologic treatment of ovarian cancer. After extensive discussion regarding local treatment options we have agreed to have her be seen by Dr. Chu Winchester preoperatively. If then required they can be additionally referred on to [facility]. Otherwise we can pursue surgical and oncologic treatment locally. They have had an opportunity to ask and have questions answered. Today's appointment was a 45-minute visit. CC: Dr. Mendez Jay and Dr. Chu Thakur M.D., F.A.C.S. Orders Referrals: Oncology C50.411, Z17.0 Coding Level of Care Code Off vis,est,level 3 Diagnoses Malignant neoplasm of upper-outer quadrant of right breast in female, estrogen receptor positive C50.411; Z17.0 ??Breast location: upper outer quadrant of breast ??Estrogen receptor status: positive ??Patient sex: female ??Laterality: right 09/30/19 1447 <Electronically signed by Wilfredo wasserman MD> Date _ Wilfredo Thakur MD I have re-examined the patient. There are no clinical changes since date of exam.
--- NOTE | 2019-09-30 11:33 | HP_ITS ---
Intake Vital Signs 09/30/19 Height 5 ft 9.5 in 09/30/19 Weight: 218 lb 09/30/19 BMI 31.7 09/30/19 BP 165/85 H 09/30/19 Blood Pressure Location Rt brachial 09/30/19 Position Sitting 09/30/19 Respiration 18 09/30/19 BMI 31.7 Intake Visit Reasons: F/U BREAST BIOPSY RESULTS Senior Automation Engineer Required: No Is patient in pain?: No Allergies doxycycline Allergy (Mild, Verified 09/30/19 13:35) Unknown prochlorperazine [From Compazine] Allergy (Mild, Verified 09/30/19 13:35) Unknown Medications calcium carb 333 mg-vit D3 133 unit-mag ox 133 mg-zinc oxide 5 mg tab tab PO 09/16/19 [History Confirmed 09/30/19] dietary supp combo no.21 190 mg-calcium phosphate 85 mg calcium tablet tab PO 09/16/19 [History Confirmed 09/30/19] estradiol 1 mg-progesterone 100 mg capsule 1 cap PO QPM 09/16/19 [History Confirmed 09/30/19] PFSH Medical History Abnormal ultrasound of breast (Acute) Basal cell carcinoma (Acute) Surgical History History of laparoscopic appendectomy (Acute) Hx laparoscopic cholecystectomy (Acute) S/P Mohs surgery for basal cell carcinoma (Acute) Status post Achilles tendon repair (Acute) Social History (Updated 09/30/19 @ 14:47 by Wilfredo Thakur MD) Smoking Status: Never smoker alcohol intake: never HPI HPI HPI: ALETHA ROBB, is a 49 F who presents to the office today for HPI HPI Surgical H&P: Yes HPI: ALETHA ROBB, is a 49 F who presents to the office today for surgical follow-up consultation regarding her right breast findings. She initially palpated a right breast mass. Imaging suggested at the area that she was feeling was a large simple cyst. But on ultrasound there was a density identified upper outer quadrant right breast 10 o'clock position 9 mm in greatest dimension. On review of the mammogram there were felt to be some clustered calcifications in the upper outer right breast as well. I performed a ultrasound-guided aspiration of her cyst. I performed an ultrasound-guided needle core biopsy of the ultrasonographic density upper outer quadrant right breast 10 o'clock position +3 cm. I then performed a stereotactic needle core biopsy of the microcalcifications upper outer quadrant right breast. The ultrasound density is invasive ductal carcinoma with pathology below. The microcalcifications show a minute fragment of invasive ductal carcinoma as well [facility] Medical Records Department [address] [place] [address] Operative Report 09/23/19 1125 MR#: [id number] Name:ALETHA ROBB ERe #:[id number] : 1970 49From: Wilfredo Thakur MD PCP:Mendez Jay, Status:REG CLY Location: [facility] Problem List (1) Abnormal mammogram of right breast Status: Acute Report of Operation Date of Procedure: 09/23/19 Pre-Operative Diagnosis: Abnormal mammogram with clustered calcifications upper outer quadrant right breast Post-Operative Diagnosis: Same Surgery/Procedure Performed:: Stereotactic needle core biopsy upper outer quadrant right breast Description of Surgical Findings:: Timeout and informed consent was obtained. 49-year-old female was taken to the stereotactic unit. She was placed prone on the table. The right breast was placed in a lateral medial view. Stereotactic images were obtained. Target on city planning teacher selected replacing image 2. Digital information obtained on a single target site. Breast was prepped with Betadine. 1% lidocaine was used as local anesthetic. A total 10 cc was used. A small stab incision was created. A 10- gauge resolved needle was advanced to prefire depth. Prefire films were obtained demonstrating adequate localization. The device was fired. 6 cores were obtained. Specimen mammograms were obtained. The microcalcifications present on the pre-film were present within cores 1 and 2. A mini marking clip was left in position at the 11 o'clock position. On fast view demonstrated good localization with a marking clip and absence of the previous calcifications. It is of note that this marking clip is very close to the ultrasound place clip performed because of the ultrasound identified density. She was released from the device. Pressure was held for hemostasis. Steri-Strip Telfa OpSite dressing applied. The specimens were immediately transferred to formalin. The pathology on the ultrasound-guided biopsy is invasive ductal carcinoma. The patient has an office follow-up scheduled to plan definitive approach. It would appear that the area of microcalcifications is in close proximity to the ultrasound identified density. Specimens cores. Drains none. Blood loss minimal. Wilfredo Thakur M.D., F.A.C.S. Type of Anesthesia:: Local 09/23/19 1130<Electronically signed by Wilfredo Thakur MD> Date Wilfredo Thakur MD CC: Mendez Jay DO; Wilfredo Thakur MD ~ Signed Stereo Bx results: Right breast, upper lateral portion microcalcifications, stereotactic core biopsy: Minute foci invasive ductal carcinoma.Focal intraductal hyperplasia without atypia U/S Bx results Right breast, ultrasound-guided needle core biopsy: Invasive ductal carcinoma with the following characteristics:Maximal length ?7 millimeters Nuclear grade ?2/3 Estrogen receptor greater than 95% Progesterone receptor greater than 95% HER-2/darren 1+ Intake Visit Reasons: R BRST/CARLOS IV--biopsy !! Senior Automation Engineer Required: No Is patient in pain?: No Allergies doxycycline Allergy (Mild, Verified 09/16/19 08:24) Unknown prochlorperazine [From Compazine] Allergy (Mild, Verified 09/16/19 08:24) Unknown Medications calcium carb 333 mg-vit D3 133 unit-mag ox 133 mg-zinc oxide 5 mg tab tab PO 09/16/19 [History] dietary supp combo no.21 190 mg-calcium phosphate 85 mg calcium tablet tab PO 09/16/19 [History] estradiol 1 mg-progesterone 100 mg capsule 1 cap PO QPM 09/16/19 [History Confirmed 09/16/19] PFSH Medical History Basal cell carcinoma (Acute) Surgical History History of laparoscopic appendectomy (Acute) Hx laparoscopic cholecystectomy (Acute) S/P Mohs surgery for basal cell carcinoma (Acute) Status post Achilles tendon repair (Acute) Family History Mother Heart disease Hypertension Breast cancer, Onset Age: 74 Father Heart disease Hypertension Social History (Updated 09/16/19 @ 08:58 by Wilfredo Thakur MD) Smoking Status: Never smoker alcohol intake: never HPI HPI HPI: ALETHA ROBB, is a 49 F who presents to the office today for HPI HPI Surgical H&P: Yes HPI: ALETHA ROBB, is a 49 F who presents to the office today for surgical consultation regarding abnormal breast imaging. 49-year-old female. G4, . Menarche at age 10. First child was born when she was 23. She did breast-feed. No history of previous breast biopsies. She states that she has been estrogen dominant. Dr. Hugo has had her on progesterone cream to help treat bleeding and cramping. This is been ongoing for 1 to 1-1/2 years. Family history is notable that her mother had breast cancer in her 70s. She apparently did not of breast cancer. The patient is never had a previous colonoscopy. Routine imaging was obtained below. The patient had no symptoms. The pertinent findings below suggest that she has a cyst in the upper quadrant right breast 11 o'clock position. The cyst measures 2.9 x 4.3 x 0.9 cm. She has a indeterminant density based upon ultrasound at the 10 o'clock position right breast +3 cm. This measures 0.5 x 0.4 x 0.9 cm In addition on mammogram there were microcalcifications laying in the slightly upper lateral position of the right breast BI-RADS Category 4. It is not clear whether the microcalcifications correlate with the density seen on ultrasound at the 10 o'clock position. puter Aided Diagnostic [facility] Imaging Services [address] [place] [address] DIAG MAMM W/CAD, UNILAT MR#: [id number] Name: ALETHA ROBB [facility] #:[id number] : 1970F 49 From: Terell Renee MD PCP:Mendez Jay DO Status:[facility] Study:DIAG MAMM W/CAD, UNILAT Date of Exam:08/27/19 Exam#[id number] Ordering Dr: Dianna Hugo MD ADDENDUM by Terell Renee MD on 08/27/19 at 1542 ADDENDUM This is an addendum report. Microcalcifications are seen in the slightly upper lateral portion of the right breast. Biopsy is recommended. BIRADS Category 4. Electronically Signed: Terell Renee, at 15:42 EST , Service support , 08/27/19 1542 Date cc: Mendez Jay DO; Dianna Hugo MD ~* Signed ADDENDUM by Terell Renee MD on 08/27/19 at 1542 BI/DIAG MAMM W/CAD, UNILAT 08/27/19 1549 Date cc: Mendez Jay DO; Dianna Hugo MD ~* Signed MAMMOGRAPHY - UNILATERAL DIAGNOSTIC: RIGHT BREAST REASON FOR EXAM: Female, 49 years old. Right breast mass. PERTINENT HISTORY: Mother with breast cancer. TECHNIQUE: Compression views of the right breast were obtained in the mediolateral and oblique views. CAD: Full Field Digital Mammography with Computer Added Detection was performed. COMPARISON: Comparison is made with prior mammogram dated August 18, 2019. FINDINGS: Breast Composition: The breasts are heterogeneously dense, which may obscure small masses. There is evidence of a 3 cm x 3.1 cm well-defined nodule in the retroareolar region of the right breast. Correlation with ultrasound is recommended. No other significant abnormalities are identified. BI/DIAG MAMM W/CAD, UNILAT IMPRESSION: 3 cm x 3.1 cm well-defined nodule in the retroareolar region of the right breast as described. Correlation with ultrasound is recommended. ASSESSMENT CATEGORY: BIRADS Category 0: Incomplete. Need additional imaging evaluation. A letter regarding these results will be sent to the patient by the facility within 30 days. Approximately 10% of breast cancers are not detected by mammography. A normal mammogram should not delay biopsy of a clinically suspicious abnormality. Electronically Signed: Terell Renee, at 15:22 EST , Service support , CC: Mendez Jay DO; Dianna Hugo MD ~ Sign Carpenter: Signed [facility] Imaging Services [address] [place] [id number] Breast Limited Unilateral MR#: [id number] Name: ALETHA ROBB [facility] #:[id number] : 1970 49 From: Terell Renee MD PCP:Mendez Jay DO Status:[facility] CLI Study:Breast Limited Unilateral Date of Exam:08/27/19 Exam#[id number] Ordering Dr: Dianna Hugo MD STUDY: ULTRASOUND BREAST - RIGHT REASON FOR EXAM: Female, 49 years old. Abnormal screening mammogram. TECHNIQUE: Axial and longitudinal images of the RIGHT breast were performed with a high resolution ultrasound transducer. # OF IMAGES: 46 COMPARISON: Comparison is made with prior mammogram done earlier today. FINDINGS: RIGHT Breast: The mammographic abnormality corresponds to a 2.9 cm x 4.3 cm x 0.9 cm cyst at the 11:00 position of the breast at 1 cm from the nipple. There is also evidence of a 5 mm x 4 mm x 9 mm hypoechoic nodular density posterior acoustical shadowing at the 10:00 position breast at 3 cm from nipple. A biopsy is recommended. US/Breast Limited Unilateral IMPRESSION: The palpable abnormality corresponds to a 2.9 cm x 4.3 cm x 0.9 cm cyst at the 11:00 position in the breast at 1 cm from the nipple. Suspicious subcentimeter nodule at the 10:00 position breast at 3 cm from nipple. Biopsy is recommended. ASSESSMENT CATEGORY: BIRADS Category 4: Suspicious - Biopsy Should Be Considered. A letter regarding these results will be sent to the patient by the facility within 30 days. Electronically Signed: Terell Thelma, at 15:41 EST , Service support , ROS General General: No weight change, appetite, fatigue, colon cancer, breast cancer or weakness HEENT HEENT: No difficulty swallowing, eye injury, eye surgery, swollen glands or hoarseness Endo Endocrine: No thyroid disease, diabetes mellitus, thyroid cancer, Hair loss, heat intolerance or cold intolerance Skin Skin: Yes changing moles; no rash Breast Breast: Yes abnormal mammogram and abnormal US; no left breast lump, right breast lump, nipple discharge, breast pain or breast enlargement Musc Musculoskeletal: No back problems, arthritis, rheumatoid arthritis, gout or joint pain Cardio Cardiovascular: No murmur, pacemaker, heart disease, atrial fibrillation, high blood pressure, heart attack, heart stent, palpitations, shortness of breat with exertion or chest pain Psych Psychiatric: No depression, anxiety or hearing voices Resp Respiratory: No shortness of breath, No sleep apnea, No cough, No COPD, No asthma, No emphysema, No wheezing Gastro Gastrointestinal: No abdominal pain, No nausea or vomiting, No diarrhea, No constipation, No blood in stool, No acid reflux, No hemorrhoids, No ulcers, No gallbladder problem, No black,tarry stools Irineo Hematologic: No blood thinners, No blood disorders, No bleeding, No anemia, No blood clots Neuro Neurologic: No system reviewed and no additional complaints, except as docu, No as per HPI, No abnormal walking, No abnormal hearing, No abnormal movements, No abnormal speech, No behavioral changes, No burning sensations, No confusion, No seizure-like activity, No unsteadiness, No dizziness, No localized weakness, No frequent falls, No headache(s), No lack of coordination, No loss of vision, No memory loss, No numbness, No other visual disturbances, No radiating pain, No restless legs, No sensory deficit, No fainting, No tingling, No tremor(s), No weakness, No other Exam Const General: cooperative, healthy appearing, comfortable, no acute distress Nutritional Appearance: obese Orientation: alert, awake [facility] Head: normal to inspection Chest Breast Palpation: No nipple discharge Other: Right breast: Very diffuse fibrous dense throughout. Nondescript fullness upper outer quadrant right breast. No nipple discharge. No axillary or clavicular adenopathy Left breast: Again diffusely fibrous dense throughout. Unable to palpate any masses. No axillary or clavicular adenopathy Resp Effort & Inspection: normal respiratory effort Auscultation: clear to auscultation bilaterally Cardio Rate: regular rate Rhythm: regular rhythm Heart Sounds: no murmurs GI Palpation: soft, no hepatosplenomegaly Auscultation: normal bowel sounds Extrem General: no calf tenderness bilaterally Psych Affect: normal affect Office Procedures Biopsy Provider Documentation Procedure note Ultrasound-guided needle core biopsy upper outer quadrant right breast 10 o'clock position +3 cm Ultrasound-guided fine-needle aspiration upper outer quadrant right breast 11 o'clock position +1 cm cystic lesion Timeout and informed consent was obtained. The patient taken the procedure room placed upon the table with her right shoulder roll. The upper quadrant right breast was sterilely prepped and draped. The vague triangular density upper inner quadrant right breast 10:00 was position +3 cm was felt to been identified. Under ultrasound guidance 1% lidocaine mixed 50-50 was 0.5% Marcaine was instilled as a local anesthetic. A total of 10 cc was used. A small stab incision was created. A 14-gauge Monopty needle was advanced to prefire depth. Pre-and post fire films were obtained. 6 cores were obtained. A marking clip was left in place. She tolerated the procedure well. The specimens was placed immediately into formalin. Final pathology is pending. She was given activity and wound care instructions. I then inspected the cystic lesion in the upper inner quadrant right breast 11 o'clock position +1 cm. Again local was instilled. A 22-gauge needle was advanced into the lesion and 9 cc of light cervantes fluid was obtained. This was inspected and discarded. The cyst was aspirated to completion. Wilfredo Thakur M.D., F.A.C.S. Biopsy Breast Biopsy: [id number] US Guidance Procedure Time Out Time Out Informed consent given: Yes Consent signed: Yes Time out checklist: patient, procedure, site marked/identified, positioning of patient, supplies available, allergies confirmed, team agrees on procedure Time out staff in room: Yes Time out verified: Yes Time out date: 09/16/19 Time out time: 08:20 Assessment & Plan Problems 1. Abnormal ultrasound of breast R92.8 Plan I have discussed with the patient 3 separate findings. Simple cyst upper outer quadrant right breast 11 o'clock position +1 cm. Benign and aspirated to resolution Vague triangular density seen on ultrasound upper outer quadrant right breast 10 o'clock position +3 cm. Core biopsies performed. Pathology pending. Microcalcifications clustered upper outer quadrant right breast. Stereotactic needle core biopsy recommended and will be scheduled. It is not clear to me but the microcalcifications may actually be in the same location as the 10 o'clock position +3 cm lesion. Subsequent to the stereotactic biopsy the patient will then have additional surgical follow-up. In the interim I have asked her to hold her estradiol progesterone treatment CC: Dr. Hugo and Dr. Mendez Jay \Wilfredo Thakur M.D., F.A.C.S. Orders Orders: Biopsy Today R92.8 Coding Level of Care Code Attention Can Marker Diagnoses Abnormal ultrasound of breast R92.8 Additional Codes Biopsy - Breast Biopsy: 67719 US Guidance (26689) 09/16/19 0858<Electronically signed by Wilfredo Thakur MD> Date Wilfredo Thakur MD ROS General General: No weight change, appetite, fatigue, colon cancer, breast cancer or weakness HEENT HEENT: No difficulty swallowing, eye injury, eye surgery, swollen glands or hoarseness Endo Endocrine: No thyroid disease, diabetes mellitus, thyroid cancer, Hair loss, heat intolerance or cold intolerance Skin Skin: Yes changing moles; no rash Breast Breast: Yes abnormal mammogram and abnormal US; no left breast lump, right breast lump, nipple discharge, breast pain or breast enlargement Musc Musculoskeletal: No back problems, arthritis, rheumatoid arthritis, gout or joint pain Cardio Cardiovascular: No murmur, pacemaker, heart disease, atrial fibrillation, high blood pressure, heart attack, heart stent, palpitations, shortness of breat with exertion or chest pain Psych Psychiatric: No depression, anxiety or hearing voices Resp Respiratory: No shortness of breath, No sleep apnea, No cough, No COPD, No asthma, No emphysema, No wheezing Gastro Gastrointestinal: No abdominal pain, No nausea or vomiting, No diarrhea, No constipation, No blood in stool, No acid reflux, No hemorrhoids, No ulcers, No gallbladder problem, No black,tarry stools Irineo Hematologic: No blood thinners, No blood disorders, No bleeding, No anemia, No blood clots Neuro Neurologic: No weakness Exam Chest Breast Palpation: No nipple discharge Cardio Heart Sounds: no murmurs Assessment & Plan Problems 1. Malignant neoplasm of upper-outer quadrant of right breast in female, estrogen receptor positive C50.411; Z17.0 Plan Upper outer quadrant right breast cancer with 2 areas of interest in reasonable close proximity to each other. A density identified with ultrasound and microcalcifications identified with mammography. Marking clips are left in position. I propose for the patient a stereotactic wire localization of each of these areas followed by nuclear tracer/blue dye right axillary sentinel lymph node biopsy and double wire localized upper outer quadrant right breast lumpectomy. I have discussed technique, benefit, risks, alternatives. The patient's suggested that they have heard of a cancer treatment center in [place] that is not FDA approved that they are considering.. They have also heard good things about [facility] oncologic treatment of ovarian cancer. After extensive discussion regarding local treatment options we have agreed to have her be seen by Dr. Chu Winchester preoperatively. If then required they can be additionally referred on to [facility]. Otherwise we can pursue surgical and oncologic treatment locally. They have had an opportunity to ask and have questions answered. Today's appointment was a 45-minute visit. CC: Dr. Mendez Jay and Dr. Chu Thakur M.D., F.A.C.S. Orders Referrals: Oncology C50.411, Z17.0 Coding Level of Care Code Off vis,est,level 3 Diagnoses Malignant neoplasm of upper-outer quadrant of right breast in female, estrogen receptor positive C50.411; Z17.0 ??Breast location: upper outer quadrant of breast ??Estrogen receptor status: positive ??Patient sex: female ??Laterality: right 09/30/19 1447 <Electronically signed by Wilfredo wasserman MD> Date _ Wilfredo Thakur MD
[2019-09-30 13:36] VITALS: BMI 31.7
--- NOTE | 2019-10-09 07:19 | EKG12_ITS ---
Test Reason : PRE-OP Blood Pressure : / mmHG Vent. Rate : 061 BPM Atrial Rate : 061 BPM P-R Int : 122 ms QRS Dur : 094 ms QT Int : 400 ms P-R-T Axes : 061 042 044 degrees QTc Int : 402 ms Normal sinus rhythm Normal ECG Confirmed by JOSE E ESTRADA, DEMARIO ([id number]), food editor JULISA MONTALVO ([id number]) on 10/10/2019 9:46:30 AM Referred By: Wilfredo Thakur Confirmed By:PRIMITIVO DORANTES MD
[2019-10-09 07:27] LABS: Hematocrit 40.2 % (37-47); Hemoglobin 12.8 g/dL (12.0-15.0); Mean Corp Hgb Conc 31.8 g/dL (32-36); Mean Corpuscular Hgb 27.8 pg (27.0-32.0); Mean Corpuscular Volume 87.4 fL (81-99); Mean Platelet Vol. 10.6 fl (6.2-12.0); Platelet Count 280 K/mm3 (150-450); RBC Distribution Width CV 13.5 % (11.6-14.6); RBC Distribution Width SD 43.2 fl (35.1-43.9); White Blood Count 5.4 K/mm3 (4.4-11.0)
--- NOTE | 2019-10-09 07:34 | RAD_ITS ---
STUDY: X-RAY CHEST REASON FOR EXAM: Female, 49 years old. PRE OP, ABNORMAL NAYA,no chest complaints TECHNIQUE: PA and lateral views of the chest. COMPARISON: None. FINDINGS: The lungs are clear and expanded. There is no demonstrated pleural abnormality. Normal size heart. Normal mediastinum and barbara. Normal visualized pulmonary arteries. Normal visualized aortic arch and descending thoracic aorta. Normal visualized thoracic spine. Normal visualized ribs, clavicles, and shoulders. There is no demonstrated abnormality of the visualized soft tissue structures of the upper abdomen. RAD/Chest PA and Lateral IMPRESSION: Normal x-ray examination of the chest. Electronically Signed: Salas Weber MD at 7:58 EST Tel , Service support ,
[2019-10-09 08:05] LABS: Anion Gap 5 (5-15); BUN 9 mg/dL (7-18); BUN/Creat Ratio 11.8 RATIO (10-20); Calcium,Total 8.7 mg/dL (8.5-10.1); Chloride 107 mmol/L (98-107); Creatinine, Serum 0.76 mg/dL (0.55-1.02); EST Glomerular Filtration Rate 85 mL/min (>60); Est Glom Filt Rate - Afr Amer 103 mL/min (>60); Glucose 91 mg/dL (74-106); Sodium Level 138 mmol/L (136-145)
[2019-10-13] VITALS (8 sets, daily range): BP systolic 120–163; BP diastolic 67–92; PULSE 50–81; RESP 16–18; TEMP 36.2–36.8; O2SAT 92–100; BMI 32.5
--- NOTE | 2019-10-13 | AXNB_PTH ---
PATIENT: ALETHA ROBB [place] [facility] [place][id number] AGE/SX: 49/F ROOM: RE10/13/[address]: Dr. Wilfredo Thakur MD : 1970 BED: DIS: 10/13/2019 SPEC #: [id number] RECD: 10/13/19 11:27 STATUS: JORGE JAVIER #: [id number] DEON: 10/13/19 00:[address]: Wilfredo Thakur DEPT: SURGICAL PATHOLOGY RECD BY: Virginia Burleson ENTERED: 10/13/19 12:19 SP TYPE: AX NODE BX OTHR DR: Dr. Mendez Jay, DO No Primary Care Phys Tissues: A - Axillary lymph node, NOS B - Right breast, NOS Procedures: Frozen Section (charge) Surgery Specimen Level IV Surgery Specimen Level V HEADER OPERATION: Right breast lumpectomy, sentinel node, needle localization x2, radiotracer PRE-OP DIAGNOSIS: Abnormal mammogram right breast TISSUE SUBMITTED: A - Right breast tissue and sentinel node sent for FS at 1120, B - Right breast tissue FROZEN SECTION DIAGNOSIS A. Right sentinel lymph node tissue, biopsy: Two out of two lymph nodes, negative for metastatic carcinoma. :juhi 10/13/19 MICROSCOPIC DIAGNOSIS A. Right breast sentinel lymph node tissue, biopsy: Four out of four lymph nodes, negative for metastatic carcinoma. See comment. B. Right breast, lumpectomy with needle localization: Invasive ductal carcinoma. See cancer summary below. See comment. SJ:juhi 10/17/19 INVASIVE BREAST CANCER SUMMARY: Procedure - excision with wire-guided localization Specimen laterality - right Tumor site - not specified Tumor size - 1.5 x 1.5 x 1 cm Histologic type - invasive ductal carcinoma Histologic Grade (Kunkle grade): Glandular/tubular differentiation - score 2 Nuclear pleomorphism - score 2 Mitotic count - score 1 Overall grade - 1 (score of 5) Tumor focality - single focus of invasive carcinoma Ductal carcinoma in situ (DCIS) - present - Negative for extensive intraductal component (EIC). - Estimated size (extent) of DCIS - the ductal carcinoma in situ comprise <10% of the total tumor volume. Number of blocks with DCIS - 3 Number of blocks examined - 12 Architectural patterns - cribriform and papillary Nuclear grade - grade 2 (intermediate) Necrosis - not identified Lobular carcinoma in situ (LCIS) - not identified Tumor extension: Skin - skin is present ad uninvolved. Nipple - not applicable Skeletal muscle - no skeletal muscle is present. Margins: Invasive carcinoma margin - uninvolved by invasive carcinoma. Ductal carcinoma in situ margin - uninvolved by ductal carcinoma in situ. Invasive carcinoma and ductal carcinoma in situ are 1.5 cm away from the closest posterior margin of excision. Regional lymph nodes: Number of sentinel lymph nodes examined - 4 Total number of lymph nodes examined (sentinel and nonsentinel) - 4 Number of lymph nodes with macrometastases, micrometastases and isolated tumor cells - 0 Treatment effect - no known presurgical therapy. Lymphvascular invasion - not identified. Dermal lymphvascular invasion - not identified. Distant metastasis - not applicable Additional pathologic findings: - Fibrocystic changes, adenosis and intraductal hyperplasia without atypia. - A minute intraductal papilloma. - Dermal fibrosis consistent with scar. Ancillary studies - previously performed on section of tumor ([id number] / [id number]). ER - positive (>95%, strong intensity) [place] - positive (>95%, strong intensity) Her2 darren - negative (1+) Ki67 - positive, 5% Her2 by dual TYLER - not performed Microcalcifications - present in ductal carcinoma in situ, invasive carcinoma and non-neoplastic tissue. Clinical history - Please make reference to previous specimens ([id number]) right breast, ultrasound-guided needle core biopsy with diagnosis of invasive ductal carcinoma and ([id number]) right breast, microcalcifications upper lateral portion, stereotactic core biopsy with diagnosis of minute foci of invasive ductal carcinoma and focal intraductal hyperplasia without atypia and with microcalcification. Radiologic finding - abnormal right breast ultrasound and microcalcification upper lateral portion of right breast. PATHOLOGIC STAGE: pT1c pN0(sn) Mx The above summary is in compliance with [employer] (CAP) Cancer Protocols Checklist and [place] Joint Committee on Cancer (AJCC), Staging Manual, 8th Ed. COMMENT A. Two additional minute lymph nodes are identified in block 4 in permanent sections. The lymph nodes are negative for metastatic carcinoma on multiple H & E levels and immunohistochemical stains for cytokeratins ([id number]). B. Frequent microcalcifications are noted in the area of adenosis and intraductal hyperplasia. Case has been reviewed in consultation with Dr. Romero who concurs with the above diagnosis. IDC:AM MICROSCOPIC DESCRIPTION Slides are reviewed. GROSS DESCRIPTION A - Received fresh for frozen section diagnosis labeled with the patient's name is a specimen designated right sentinel lymph node. The specimen consists of a piece of fibroadipose tissue measuring 4 x 2 x 0.5 cm. Two lymph nodes are identified. The lymph nodes measure 1 and 2.5 cm in greatest dimension. The entire specimen is submitted for frozen section diagnosis as follows: 1 & 2 - one bisected lymph node, frozen section, 3 - frozen section, one lymph node, 4 - rest of the specimen. / SJ:juhi 10/13/19 B - Received fresh for OR consultation labeled with the patient's name is a specimen designated right breast tissue. The specimen consists of an oriented fragment of cervantes-yellow fibrofatty tissue containing two wires measuring 8 x 7 x 3 cm and weighing 93.6 gm. A small ellipse of skin is present on the anterior surface measuring 3.5 x 0.5 cm. No cutaneous lesions are identified. The specimen is inked as follows: anterior - yellow, posterior - black, superior - blue, inferior - green, medial - red and lateral - orange. Serial sections reveal a blood-filled biopsy cavity measuring 1.5 x 1 x 1 cm and located 1.5 cm from its closest (posterior) margin of excision. The proximity of the biopsy cavity to the closest margin is conveyed to the surgeon intraoperatively. The uninvolved portion of the breast parenchyma is mostly yellow and fatty. Adjacent to the breast cavity is an area of ill-defined induration measuring 1 cm in greatest dimension. Application Processor sections are submitted as follows: 1 - perpendicular medial, lateral, superior and inferior margins, 2 - perpendicular anterior and posterior margins and skin, 3-5 - biopsy cavity, 6 & 7 - tissue adjacent to biopsy cavity, 8-12 - territory sales representative sections of breast parenchyma away from biopsy cavity. / AM:juhi 10/14/19 TC:0 CPT: 10409 x2, 95983, 60087 x3, 71774 ADDENDUM ADDENDUM ADDENDUM ADDENDUM ADDENDUM ADDENDUM ADDENDUM ADDENDUM 10/31/2019 10:16 ADDENDUM 10/31/2019 10:16 ADDENDUM 10/31/2019 10:16 ADDENDUM 10/31/2019 10:16 ADDENDUM 10/31/2019 10:16 An order for Oncotype testing was received from Dr. Cook. This necessitated case review, block and slide selection by pathologist at [facility]. Breast Cancer Recurrence Score = 8 Results of the complete Oncotype testing (KustomNote report) are viewable in EMR under: Reports - Pathology - Lab Pathology Report, Scanned.
--- NOTE | 2019-10-13 | IMM_PTH ---
PATIENT: ALETHA ROBB LOC: [facility] – [place] U#:[id number] AGE/SX: 49/F ROOM: RE10/13/[address]: Dr. Wilfredo Thakur MD : 1970 BED: DIS: 10/13/2019 SPEC #: [id number] RECD: 10/17/19 12:56 STATUS: JORGE REBetty #: [id number] DEON: 10/13/19 00:[address]: Wilfredo Thakur DEPT: IMMUNOHISTOCHEMISTRY RECD BY: Virginia Burleson ENTERED: 10/17/19 12:57 SP TYPE: IMMUNO OTHR DR: Dr. Mendez Jay, DO No Primary Care Phys Tissues: A - Axillary lymph node, NOS Procedures: CK7 (add) Pankeratin (initial) Pankeratin (add) PHYSICIAN & INSTITUTION [place] [id number] SPECIMEN INFORMATION: Tissue Source: A - Right breast tissue and sentinel node Clinical Info: Abnormal mammogram right breast Specimen Number: [id number] A1-4 CPT code: 60041, 17673 x7 METHODOLOGY: Deparaffinized sections of prefer/formalin-fixed tissue or PAP/DQ stained slides are incubated with monoclonal/polyclonal antibodies/oligonucleotide probes. Localization is made via biotin free immunoperoxidase method. Appropriate controls are performed and reacted as expected. Results on target cell population are indicated in the following table: RESULTS: ANTIBODY / CLONE RESULT Block A1 AE1-3 (AE1/AE3/PCK26) negative CK7 (OV-TL12/30) negative Block A2 AE1-3 (AE1/AE3/PCK26) negative CK7 (OV-TL12/30) negative Block A3 AE1-3 (AE1/AE3/PCK26) negative CK7 (OV-TL12/30) negative Block A4 AE1-3 (AE1/AE3/PCK26) negative CK7 (OV-TL12/30) negative These tests were developed and their performance characteristics determined by [facility]. They may not have been cleared or approved by the U.S. Food and Drug Administration. The FDA has determined that such clearance or approval is not necessary. The above immunohistochemical/dualISH markers are ordered and reviewed by the Pathologist. INTERPRETATION: A. Right breast tissue and sentinel node, biopsy: Four out of four lymph nodes, negative for metastatic carcinoma. SJ:juhi 10/17/19
--- NOTE | 2019-10-13 08:00 | NM_ITS ---
PROCEDURE: NUCLEAR MEDICINE Injection [place] Node - RIGHT breast(s). REASON FOR EXAM: Female, 49 years old. Right breast cancer. TECHNIQUE: [place] node localization using radionuclide methods of the RIGHT breast(s) was performed following subcutaneous administration of 1.1 mCi of of sulfur colloid Tc-99m. FINDINGS: 1.1 mCi of technetium labeled sulfur colloid was injected subcutaneously in 4 equal aliquots in the outer midportion of the right breast. NM/Lymph Node Injection Only IMPRESSION: Subcutaneous injection of technetium labeled sulfur colloid for sentinel node imaging. Electronically Signed: Terell Renee, at 8:37 EST , Service support ,
[2019-10-13] MEDS: Lactated Ringers 1,000 ML 100 ML IV ×2 (08:24→12:34)
--- NOTE | 2019-10-13 09:04 | BI_ITS ---
SURGICAL BREAST SPECIMEN RADIOGRAPH CLINICAL: Document presence of tissue clip marker in biopsy specimen. FINDINGS: Specimen shows presence of tissue clip marker. Electronically Signed: Terell Renee, at 7:59 EST , Service support , BI/Breast Biopsy Specimen
--- NOTE | 2019-10-13 10:23 | OP.PCM_ITS ---
Problem List (1) Breast cancer Status: Acute Qualifiers: Breast location: upper outer quadrant of breast Estrogen receptor status: positive Patient sex: female Laterality: right Qualified Code(s): C50.411 - Malignant neoplasm of upper-outer quadrant of right female breast; Z17.0 - Estrogen receptor positive status [ER+] Report of Operation Date of Procedure: 10/13/19 Pre-Operative Diagnosis: Invasive ductal carcinoma upper quadrant right breast density and invasive ductal carcinoma upper outer quadrant right breast micro calcifications Post-Operative Diagnosis: Same Surgery/Procedure Performed:: Double stereotactic wire localization upper outer right breast. Wire localized right breast lumpectomy with right axillary blue dye and nuclear tracer sentinel lymph node biopsy Description of Surgical Findings:: Timeout and informed consent was obtained. 49-year-old female was taken to the stereotactic unit placed prone on the table. The right breast was placed in a medial lateral view. The 2 marking clips in question rapid identified. 1 was previously associated with an ultrasound density and the other with microcalcifications. Stereotactic images were obtained. Digital information for each was obtained with a single target site. The breast was prepped with Betadine. 1% lidocaine was used as a local anesthetic. Throughout the procedure 1 cc was used. 20-gauge Kopan's needle was advanced to prefire depth +15 mm for each of the lesions. 2 separate wires were performed. On fast view demonstrated good positioning. She was released from the device and the wires were secured with tape. Follow-up cc view was obtained demonstrating adequate localization. Sterile dressings were applied. She was subsequently taken to the operating for definitive surgery. Blood loss minimal no apparent complication. 49-year-old female was taken the operating placed by the table underwent general anesthesia. The right breast periareolar area was prepped with alcohol. 3 cc of isosulfan blue dye was injected retrogradely and massage was performed for 4 minutes. The right arm was wrapped with soft roll and placed at right angles to the table. The right breast and axilla were sterilely prepped and draped. An oblique incision was made in the right axilla sharp dissection carried down through the subtenons tissue electrocautery immediately lymphatic blue dye tracking was identified to a sizable lymph node. Using electrocautery and pneumonic scalpel and hemoclips this was dissected free. There was a small adjacent lymph node that did not have this much blue coloration. That was removed en desmond with the larger one. Counts for 10 seconds or 18. Put the neoprobe back in and higher counts were noted in the direction of the tumor but I could not identify any additional lymph nodes either by neoprobe or visualization or palpation. I then addressed the double wire low carrier. There were 2 small previous incisions. I made a slightly curvilinear vertical elliptical excision of the previous core biopsy sites. Electrocautery was then used to dissect direct down to the chest wall completely circumferentially around the bracketed lesion. Electrocautery was used for hemostasis as well as interrupted 3-0 Vicryl li gatures. Specimen was excised. The wires exited anteriorly. A short suture was placed superior. A long suture laterally. Inspection revealed good hemostasis after treatment with electrocautery. 4 small hemoclips were placed at 4 corners where the lumpectomy was performed. The subdermal tissues of each wound were approximated with interrupted 3-0 Vicryl. Skin edges approximated opted for Monocryl subdermal stitches. The krishna-incisional area of each wound was anesthetized with 0.5% Marcaine. A total of 30 cc was used. Steri-Strips Telfa OpSite bulky dry dressings applied. Sponge and instrument and needle counts were reported the surgeon be correct. Specimens right axillary sentinel lymph nodes x2. Right breast specimen. Drains none. Blood loss minimal. Pathology reported to sentinel lymph nodes submitted both negative for tumor. Pathology reported to the lumpectomy is Willie appeared to be grossly free margins. Wilfredo Thakur M.D., F.A.C.S. Type of Anesthesia:: General
[2019-10-13] MEDS: Cefazolin 2 GM in 0.9% Normal Saline 100 ML IV (10:36)
--- NOTE | 2019-10-13 10:38 | DCINST_ITS ---
Discharge Diet: No Restrictions Discharge Activity: May Not Drive - for 2-3 days or while taking narcotic pain meds. May shower in (days): 1 Lifting Restrictions: 10 pounds for 1 week. Call your doctor if your incision/area has: Continuous Slow Oozing, Sudden In creased Bleeding Call your doctor if you observe: Fever of 101 or Higher Suture Line Care: Avoid Pulling/Pushing, Avoid Pinching/Bending Remove Dressing in (days):: 1 - Remove bulky dressing tomorrow. May leave any opsite dressing for 3-4 days. Keep dressing in place until your follow-up appointment. Additional Dressing/Incision Instructions:: Remove bulky dressing tomorrow. May leave any opsite dressing for 3-4 days. After you remove the plastic dressing please leave the Steri-Strips on for 1 week Allergies/Adverse Reactions: Allergies doxycycline Allergy (Mild, Verified 10/13/19 07:52) Unknown prochlorperazine [From Compazine] Allergy (Mild, Verified 10/13/19 07:52) Unknown bandaid Allergy (Uncoded 10/13/19 07:52) Rash Medications to take at Discharge calcium carb 333 mg-vit D3 133 unit-mag ox 133 mg-zinc oxide 5 mg tab 1 tab PO TID 09/16/19 dietary supp combo no.21 190 mg-calcium phosphate 85 mg calcium tablet 1 tab PO DAILY 09/16/19 Cetirizine HCl [Zyrtec] 10 mg PO PRN PRN 10/08/19 Hydrocodone Bitart/Apap 5-325 [Dexter 5MG-325MG] 1 tablet PO Q6H PRN PRN 2 Days #6 tablet 10/13/19 The following prescriptions were given: Hydrocodone Bitart/Apap 5-325 [Dexter 5MG-325MG] 1 tablet PO Q6H PRN PRN 2 Days #6 tablet PRN Reason: Pain Transmission Status: Received by [facility] Orders to be completed after discharge: 12 Lead EKG [CVS] Time Frame: 10/08/19, Facility: [facility], Location: Cardiovascular Services Chest PA and Lateral [RAD] Time Frame: 10/08/19, Facility: [facility], Location: Radiology, [facility] Basic Metabolic Profile (BMP) Time Frame: 10/08/19, Facility: [facility], Location: Laboratory CBC-Complete Blood Cnt No Diff Time Frame: 10/08/19, Facility: [facility], Location: Laboratory Primary Care Physician: Care Physician,No Primary [Primary Care Provider] - Please Follow Up With: Wilfredo Thakur MD When: [phone] Office appt in 7-10 days please
[2019-10-13] MEDS: Isosulfan Blue 1% 5 ML Vial (11:00)
[2019-10-13] MEDS: Bupivacaine Mpf 0.5% 30 ML VIAL (12:00)
[2019-10-13] MEDS: HYDROcodone Bitartrate/Apap 5/325 Tablet PO (15:02)
== END 2019-10-13 16:59 | disposition home or self-care (01) ==
LOC: SDC 07:31 → AC 07:37
PROVIDERS: Family Provider Family Medicine; Referring Provider Surgery; Visit Provider Surgery
PROC: (CPT 19301; principal; 2019-10-13 10:15)
DX: C50.411 Malignant neoplasm of upper-outer quadrant of right female breast (principal); Z17.0 Estrogen receptor positive status [ER+]; Z85.828 Personal history of other malignant neoplasm of skin
CPT/HCPCS: 19301; 38500; 19281; 19282; 36415; 38792; 71046; 76098; 80048; 85027; 88305; 88307; 88331; 88341; 88342; 93005; A9541; J7120; A4216; J2405; Q9968

== ENCOUNTER 2020-03-13 11:43 | Emergency (ER) | payer OTHER, SELFPAY ==
[2019-12-11 09:37] VITALS: BMI 32.2
[2020-01-15 08:54] VITALS: BMI 30.9
[2020-03-13 11:44] VITALS: BP 159/72; PULSE 73; RESP 16; TEMP 36.6; O2SAT 98; BMI 28.8
--- NOTE | 2020-03-13 12:56 | ED.VIS.GEN ---
History of Present Illness Chief Complaint: Laceration Informant: Patient, Family Onset: Today Narrative: Patient was cutting a watermelon with a knife and she sustained a laceration to the left thumb. She notes her tetanus is up-to-date. She denies any other injuries. Past Medical History - Allergies and Home Meds Allergies/Adverse Reactions: Allergies doxycycline Allergy (Mild, Verified 03/13/20 11:43) Unknown prochlorperazine [From Compazine] Allergy (Mild, Verified 03/13/20 11:43) Unknown bandaid Allergy (Uncoded 03/13/20 11:43) Rash Primary Care Physician: Иван Hernández DO [Primary Care Provider] - Smoking Status: Never smoker Review of Systems General: Denies: Chills, Fever, Sweats Eyes: Denies: Visual changes - bilaterally, Diplopia ENT: Denies: Rhinorrhea, Sore throat Cardiovascular: Denies: Chest pain, Palpitations Respiratory: Denies: Dyspnea, Cough, Dyspnea on exertion Gastrointestinal: Denies: Abdominal pain, Nausea, Vomiting, Diarrhea, Melena, Hematochezia Genitourinary: Denies: Dysuria, Hematuria, Frequency Musculoskeletal: Denies: Back pain, Extremity Pain Skin: Denies: Rash, Wounds Neurological: Denies: Headache, Weakness, Numbness Physical Exam Vital Signs/Narrative: Vital Signs Temp Pulse Resp BP Pulse Ox 03/13/20 11:44 97.8 F 73 16 159/72 H 98 Inital Vital Signs reviewed: Yes General: Well nourished, Well developed, No Acute Distress Head: Normocephalic, Atraumatic Eyes: Perrl, EOMI ENT: Moist mucous membranes, No rhinorrhea Neck: Supple, Nontender Cardiovascular: Regular rate, Regular rhythm, No murmurs Respiratory: No distress, CTA bilaterally, Chest nontender Abdomen: Soft, Nontender, Nondistended, Normal bowel sounds Back: Nontender, Normal Inspection Extremities: No edema, - - There is a 3 cm laceration over the volar aspect of the left thumb. It goes just to the side of the nail. It is flap-like. It measures approximately 4 cm. Skin: Normal color, No rash Neurological: Alert, Oriented x3, Cranial nerves II-XII grossly intact, Normal Strength, Normal Sensation Psychological: Normal affect, Normal Mood Diagnostic/Tx/Re-eval - Medical Decision Making The thumb underwent a lateral digital block. After adequate time anesthesia was achieved. It was washed with Shur-Clens. The wound was closed using a total of 7 simple interrupted 4-0 Ethilon sutures. Wound care discussed with patient stitches out in 7 to 10 days return if worsening or concerns ED Disposition - Plan for ED Patient: Disposition: Home or Assisted Living Diagnosis: Thumb laceration Instructions: ED Laceration Hand Referrals: Иван Hernández DO [Primary Care Provider] - 10 Day for suture removal
== END 2020-03-13 13:12 | disposition home or self-care (01) ==
PROVIDERS: Emergency Provider Emergency Medicine; PCP Family Medicine
DX: S61.012A Laceration without foreign body of left thumb without damage to nail, initial encounter (principal); W26.0XXA Contact with knife, initial encounter; Y93.9 Activity, unspecified; Y92.9 Unspecified place or not applicable
CPT/HCPCS: 12002; 99284

== ENCOUNTER → 2020-03-23 08:53 | Outpatient (CLI) | payer SELFPAY ==
[2020-01-15 08:54] VITALS: BMI 30.9
[2020-03-23 08:37] VITALS: BMI 28.8
[2020-03-23 12:35] LABS: Anion Gap 4 (5-15); BUN 14 mg/dL (7-18); BUN/Creat Ratio 19.6 RATIO (10-20); Calcium,Total 8.8 mg/dL (8.5-10.1); Chloride 110 mmol/L (98-107); Creatinine, Serum 0.71 mg/dL (0.55-1.02); EST Glomerular Filtration Rate 92 mL/min (>60); Est Glom Filt Rate - Afr Amer 111 mL/min (>60); Glucose 73 mg/dL (74-106); Potassium 4.3 mmol/L (3.5-5.1); Sodium Level 142 mmol/L (136-145)
== END ==
PROVIDERS: PCP Family Medicine; Referring Provider Family Medicine; Visit Provider Family Medicine
DX: R25.2 Cramp and spasm (principal)
CPT/HCPCS: 36415; 80048

== ENCOUNTER → 2020-08-20 08:27 | Outpatient (CLI) | payer SELFPAY ==
[2020-01-15 08:54] VITALS: BMI 30.9
[2020-03-23 08:37] VITALS: BMI 28.8
--- NOTE | 2020-08-20 09:30 | BI_ITS ---
MAMMOGRAPHY - BILATERAL DIAGNOSTIC REASON FOR EXAM: Female, 50 years old. DX F/U FROM RT LUMPECTOMY SURG 10/13/2019 - PERSONAL HX @ AGE 49 - RT LUMPECTOMY WITH RADIATION AND TOMOXIFEN SATRED 11/2019 - FAM HX OF MOTHER @ AGE 75 - LT MOLES MARKED PERTINENT HISTORY: Non-contributory. TECHNIQUE: Digital examination. Mediolateral oblique (MLO) and craniocaudad (CC) views of both breasts were obtained. CAD: COMPARISON: Previous mammogram obtained on 08/18/2019 FINDINGS: Breast Composition: Dense There are no dominant masses or suspicious calcifications. No other significant abnormalities are identified. Surgical clips are noted involving the superior lateral right breast due to a previous right breast lumpectomy with radiation therapy some mild skin thickening is noted overlying the superior lateral right breast from the previous radiation therapy. BI/DIAG MAMM W/CAD, BILAT IMPRESSION: Status post right breast lumpectomy with radiation therapy. No other abnormalities are seen. ASSESSMENT CATEGORY: BIRADS Category 2: Benign. A letter regarding these results will be sent to the patient by the facility within 30 days. FOLLOW UP RECOMMENDATION: Approximately 10% of breast cancers are not detected by mammography. A normal mammogram should not delay biopsy of a clinically suspicious abnormality. Electronically Signed: George Haider, at 16:30 EST Tel , Service support ,
== END ==
PROVIDERS: PCP Family Medicine; Referring Provider Student in an Organized Health Care Education/Training Program; Visit Provider Student in an Organized Health Care Education/Training Program
DX: D05.11 Intraductal carcinoma in situ of right breast (principal)
CPT/HCPCS: 77062; 77066; G0279

== ENCOUNTER → 2020-09-08 | Outpatient (CLI) | payer SELFPAY ==
[2020-01-15 08:54] VITALS: BMI 30.9
[2020-09-08 16:06] VITALS: BMI 29.9
[2020-09-12 04:49] LABS: HPV Reflexed? NOT INDICATED
== END | disposition home or self-care (01) ==
PROVIDERS: PCP Family Medicine; Referring Provider Family Medicine; Visit Provider Family Medicine
DX: D25.9 Leiomyoma of uterus, unspecified (principal)
CPT/HCPCS: 88175; G0145

== ENCOUNTER → 2021-08-22 10:10 | Outpatient (CLI) | payer SELFPAY ==
[2020-01-15 08:54] VITALS: BMI 30.9
--- NOTE | 2021-08-22 10:16 | BI_ITS ---
MAMMOGRAPHY - BILATERAL SCREENING REASON FOR EXAM: Female, 51 years old. Routine annual screening examination. PERTINENT HISTORY: Personal history of breast cancer. Prior right lumpectomy with radiation treatment. Mother with breast cancer. TECHNIQUE: Digital bilateral breast abbi (3D mammographic acquisition) in the CC and MLO projections. 2-D mediolateral oblique (MLO) and craniocaudad (CC) views of both breasts were obtained. CAD: Full Field Digital Mammography with Computer Added Detection was performed. COMPARISON: Comparison is made with prior study #2019 and 10/13/2019. FINDINGS: Breast Composition: The breasts are heterogeneously dense, which may obscure small masses. There are no dominant masses or suspicious calcifications. The patient is status post lumpectomy in the deep upper lateral portion of the right breast. Surgical clips are also seen in the right axillary region. Postsurgical and postradiation changes are seen with areas of architectural distortion at the operative site. No other significant abnormalities are identified. There has been no significant change since the prior study. BI/SCRN MAMM (CAD)W/ABBI BILAT IMPRESSION: Stable bilateral screening mammogram. Yearly follow-up mammogram recommended. (A) ASSESSMENT CATEGORY: BIRADS Category 2: Benign. A letter regarding these results will be sent to the patient by the facility within 30 days. Approximately 10% of breast cancers are not detected by mammography. A normal mammogram should not delay biopsy of a clinically suspicious abnormality. [id number] Electronically Signed: Terell Renee MD at 12:46 EST , Service support ,
== END ==
PROVIDERS: PCP Family Medicine; Referring Provider Student in an Organized Health Care Education/Training Program; Visit Provider Student in an Organized Health Care Education/Training Program
DX: Z12.31 Encounter for screening mammogram for malignant neoplasm of breast (principal); Z17.0 Estrogen receptor positive status [ER+]; C50.411 Malignant neoplasm of upper-outer quadrant of right female breast
CPT/HCPCS: 77063; 77067

== ENCOUNTER 2021-11-16 11:23 | Outpatient (CLI) | payer SELFPAY ==
[2020-01-15 08:54] VITALS: BMI 30.9
[2021-11-16 12:18] LABS: Absolute Lymphocyte Count 0.92 X10^3/uL (0.83-4.51); Absolute Neutrophil Count 3.6 X10^3/uL (2.0-7.7); Basophil# 0.04 X10^3/uL; Basophil% 0.8 % (0-1); Eosinophil# 0.07 X10^3/uL; Eosinophils% 1.4 % (0-5); Hematocrit 38.7 % (37-47); Hemoglobin 12.4 g/dL (12.0-15.0); Lymphocyte # 0.92 X10^3/ul (0.83-4.51); Lymphocyte % 18.5 % (19-41); Mean Corpuscular Hgb 28.7 pg (27.0-32.0); Mean Corpuscular Volume 89.6 fL (81-99); Mean Platelet Vol. 10.6 fl (6.2-12.0); Monocyte# 0.37 X10^3/uL; Monocyte% 7.5 % (0-10); NRBC Flagged by Analyzer 0 % (0-5); Neutrophil # 3.55 X10^3/uL (2.7-7.7); Neutrophil % 71.6 % (47-70); Platelet Count 258 K/mm3 (150-450); RBC Distribution Width CV 13.4 % (11.6-14.6); Red Blood Count 4.32 M/mm3 (4.2-5.4)
[2021-11-16 12:50] LABS: ALB/GLOB Ratio 0.9 RATIO (0.9-2.4); AST(SGOT) 21 U/L (15-37); Alanine Aminotransfer ALT/SGPT 22 U/L (13-56); Albumin, Serum 3.4 g/dL (3.2-5.0); Alkaline Phosphatase 38 U/L (45-117); Anion Gap 5 (5-15); BUN 15 mg/dL (7-18); BUN/Creat Ratio 20.1 RATIO (10-20); Calcium,Total 9.4 mg/dL (8.5-10.1); Chloride 107 mmol/L (98-107); Creatinine, Serum 0.75 mg/dL (0.55-1.02); EST Glomerular Filtration Rate 86 mL/min (>60); Est Glom Filt Rate - Afr Amer 104 mL/min (>60); Globulin 3.9 g/dL (2.2-4.2); Glucose 91 mg/dL (74-106); Potassium 3.8 mmol/L (3.5-5.1); Protein, Total 7.3 g/dL (6.4-8.2); Sodium Level 139 mmol/L (136-145)
[2021-11-23 14:30] LABS: HPV Reflexed? NOT INDICATED
== END 2021-11-16 23:59 | disposition home or self-care (01) ==
PROVIDERS: PCP Family Medicine; Referring Provider Family Medicine; Visit Provider Family Medicine
DX: D05.11 Intraductal carcinoma in situ of right breast (principal); Z12.4 Encounter for screening for malignant neoplasm of cervix
CPT/HCPCS: 36415; 80053; 85025; 88175; G0145

== ENCOUNTER 2022-05-22 09:00 | Outpatient (RCR) | payer SELFPAY ==
[2020-01-15 08:54] VITALS: BMI 30.9
--- NOTE | 2022-04-24 09:59 | HP.PTEVAL ---
Patient's Visit Information ALETHA ROBB is a 52 year old F referred to Physical Therapy by Dr. Antonette Barrett DPM with a diagnosis of Plantar Fascitis. Date of Evaluation: 04/24/22 Physical Therapist: Denise Rankin DPT - Visit Plan Frequency: 2x /Week Duration: 4 Weeks Plan: Ultrasound, Manual, DN- eccentric, stretching and LE/Core s/s - Subjective Patient reports that she has plantar fasciitis and inflamed bone on the left. She has has this on/off for a few years and it got better and worse. About a year ago started downhill and has not gotten any better. She had breast cancer at end of November 2019- family MD put her on hydrochlorothiazide. Started to get horrible cramps at night and felt that made the plantar fasciitis worse. She was doing housework and she thinks she tore her meniscus- all the combo of walking funny cramps it was the perfect storm. November 2021 started seeing the specimen preparation assistant- they have had her do resistance bands which made it worse. January 03 she was put in a boot and has been wearing it since. Pain is located along the middle of the heel towards the front of the fat pad. She feels pretty good unless she is walking a lot or on her feet for hours it still bothers her. Worst: 4-5/10. Agg: being on her feet, standing long periods of time, palpation, and getting out of bed. She does wear a night splint. No injections- she had Achilles Tendonitis she has cortisone injections and was having an allergic reaction. Eases: boot, rest. Best: 0/10. Describes the pain as dull and achy- does have a few sharp burning pains on the side of her ankle. No radiating pain. Sleep: not disturbed- does sleep in night splint. She does walk a little bit in the morning as she gets ready- no more than about [address] Does wear orthotics Power Step for high Arches. She has been wearing good shoes and orthotics since her first bout of plantar fasciitis. She has had an x-ray and an MRI. Work: she is a potter- pedal on the right foot. PMHx/Meds: no changes since scanned in chart. - Objective Posture: FH, RS- can correct but does not maintain. Gait: antalgic- no AD- decrease stance on left LE with CAM walker- SLS: 5 sec then reports pain and has mild LOB. HR/TR: able in standing no pain reported. No edema noted. ROM: DF: neutral, PF: 50 degrees, inver: 30 degrees Ever: 20 degrees, Knee: WFL. Strength: Ankle: 4+/5 in available range, Knee: 4/5. Flex: HS: moderate, Gastroc: severe. Soleus: severe. Palpation: tender along Achilles and fat pad- plantar fascia origion. - Balance/Special Test Scores Lower Extremity Functional Score: 55 - Goals Goal 1:: Patient will be I with HEP and progression Goal Time Frame: 4-6 Weeks Goal 2:: Patient will ambulate >300 feet without a boot Goal Time Frame: 4-6 Weeks Goal 3:: Patient will report no pain for 1 week Goal Time Frame: 4-6 Weeks - Rehabilitation Potential Physical Therapy Diagnosis: Patient presents with hypomobility- she has decreased LE and core strength/stabilization, ROM, flex, proprioception and muscular endurance leading to abnormal ambulation, poor balance and decreased ability to perform ADL's. Rehabilitation Potential: Good - Anticipated Interventions Patient/Client Instruction: Educate patient on: Benefits of Fitness Program Therapeutic Exercise to Include: Strength training, Endurance training, Coordination, Agility training, Body mechanics, Postural training, Flexibilty training, Gait and locomotor training, Neuromotor development, Dynamic Lumbar Stabilization, Scapular Strength/Stabilization For the Purpose of:: To improve muscle performance and motor function Cryotherapy (ice pack, ice massage): Yes Thermo therapy (hot pack): Yes Ultrasound (thermal/non thermal): Yes Thank you for the opportunity to evaluate your patient. For Medicare and Medicare HMO plans, please review the plan of care and approve it. It will need to be FAXED BACK to us at [phone] for Medicare purposes. For Medicare only, by signing this I certify the plan of care. Please let me know if there are questions or concerns regarding this plan of care. Physician Signature: Date:
--- NOTE | 2022-05-22 09:42 | HP.PTDCSUM ---
It has been my pleasure to treat ALETHA ROBB referred by Dr. Antonette Barrett DPM, with the diagnosis of Plantar Fascitis for a total of 9 visit(s). Discharge Date: Please see the following information for a summary of their discharge status. Subjective: Patient reports that she is 95-98% better. She is back to all normal activities and no boot. % Improvement: 98 Objective/Function: Posture: fair throughout. Gait: no deviation noted Stairs: asc/desc 8 recip without HR SLS: 30 sec no LOB or increased muscle activation HR/TR: able in standing no pain reported. No edema noted. ROM: DF:20, PF: 70 degrees, inver: 30 degrees Ever: 20 degrees, Knee: WFL. Strength: Ankle: 5/5 , Knee: 5/5. Flex: HS: moderate, Gastroc: mod. Soleus: mod. Palpation: not tender to touch Goal 1:: Patient will be I with HEP and progression Goal Progress: Goal Met Goal 2:: Patient will ambulate >300 feet without a boot Goal Progress: Goal Met Goal 3:: Patient will report no pain for 1 week Goal Progress: Goal Met Plan: 05/22: Discharge to I HEP. Ultrasound, Manual, DN- eccentric, stretching and LE/Core s/s If there are questions or concerns regarding this patient's physical therapy, please feel free to call me at [phone]. Thank you for the referral of this patient. Sincerely, Denise Rankin, HERMEST Balance/Gait/Functional tests - Balance/Special Test Scores Lower Extremity Functional Score: 79
== END 2022-05-22 19:00 | disposition home or self-care (01) ==
LOC: PT 09:00
PROVIDERS: PCP Family Medicine; Visit Provider Podiatrist
DX: M72.2 Plantar fascial fibromatosis (principal)
CPT/HCPCS: 97035; 97110; 97140; 97162; 97164

== ENCOUNTER → 2022-06-15 | Outpatient (CLI) | payer SELFPAY ==
[2020-01-15 08:54] VITALS: BMI 30.9
--- NOTE | 2022-06-15 09:21 | BI_ITS ---
MAMMOGRAPHY - BILATERAL SCREENING 3-D TOMOSYNTHESIS REASON FOR EXAM: Female, 52 years old. SCREENING PERTINENT HISTORY: No significant family history. TECHNIQUE: 2-D mammograms and 3-D Tomosynthesis of the breast (s) were performed. CAD was performed. COMPARISON: 08/22/2021 FINDINGS: The breast composition is Extermely dense tissue. Scattered benign calcifications are seen. No dense spiculated masses or suspicious microcalcifications are identified. No architectural distortion is identified. There is no skin thickening or retraction. There has been no significant change since the prior study. BI/SCRN MAMM (CAD)W/ABBI BILAT IMPRESSION: No mammographic signs of malignancy. Routine yearly mammograms recommended. ASSESSMENT CATEGORY: BIRADS Category 1: Negative. A letter regarding these results will be sent to the patient by the facility within 30 days. FOLLOW UP RECOMMENDATION: Yearly follow up mammogram recommended. (A) Approximately 10% of breast cancers are not detected by mammography. A normal mammogram should not delay biopsy of a clinically suspicious abnormality. Electronically Signed: Salas Weber MD at 14:46 EDT ,
== END | disposition home or self-care (01) ==
PROVIDERS: PCP Family Medicine; Visit Provider Internal Medicine Hematology & Oncology
DX: Z12.31 Encounter for screening mammogram for malignant neoplasm of breast (principal); C50.411 Malignant neoplasm of upper-outer quadrant of right female breast; Z17.0 Estrogen receptor positive status [ER+]
CPT/HCPCS: 77063; 77067

== ENCOUNTER → 2022-11-15 | Outpatient (CLI) | payer SELFPAY ==
[2020-01-15 08:54] VITALS: BMI 30.9
[2022-11-15 13:17] LABS: Vitamin D,25 Hydroxy 15.8 ng/mL
[2022-11-22 22:49] LABS: HPV, High Risk Negative
== END | disposition home or self-care (01) ==
PROVIDERS: PCP Family Medicine; Referring Provider Family Medicine; Visit Provider Family Medicine
DX: Z01.419 Encounter for gynecological examination (general) (routine) without abnormal findings (principal); D05.11 Intraductal carcinoma in situ of right breast
CPT/HCPCS: 36415; 82306; 87623; 87624; 88142

== ENCOUNTER → 2022-11-22 | Outpatient (CLI) | payer SELFPAY ==
[2020-01-15 08:54] VITALS: BMI 30.9
--- NOTE | 2022-11-22 13:55 | US_ITS ---
STUDY: ULTRASOUND OF THE FEMALE PELVIS - COMPLETE REASON FOR EXAM: Female, 52 years old. uterine fibroid TECHNIQUE: Endovaginal. Transvaginal US was obtained to better visualized the ovaries. COMPARISON: 8.817 FINDINGS: The uterus is anteverted and is in a midline position. The uterus measures 15.8x10.3rmal uterine cervix. The endometrium measures 15.6 in thickness, and is hyperechoic. There is no demonstrated endometrial mass. Enlarged fibroid uterus. I.U.D. - The patient does not have an I.U.D. pediculated fibroid measures 59 x 36 mm. Myometrial fibroid measures 47 x 43 mm.] The endometrial there is a fibroid measuring 30 x 31 mm. There is nonvisualization of the right ovary due to overlying bowel gas. The left ovary is visualized. The left ovary measures 2.9x2.7cm .There is no left ovarian cyst or ovarian mass. There is no visualized left adnexal mass or complex lesion. There is normal arterial and normal venous vascularity. There is no fluid in the cul-de-sac. Unremarkable urinary bladder. US/Transvaginal Non- IMPRESSION: Enlarged fibroid uterus. There is endometrial thickening. This is abnormal for the patient''s age if she is postmenopausal. Direct visualization is recommended to exclude an underlying mass. Electronically Signed: Basim Bolton MD at 16:28 EST ,
== END | disposition home or self-care (01) ==
PROVIDERS: PCP Family Medicine; Visit Provider Family Medicine
DX: D05.11 Intraductal carcinoma in situ of right breast (principal)
CPT/HCPCS: 76830

== ENCOUNTER 2022-12-29 08:53 | Emergency (ER) | payer OTHER, SELFPAY ==
[2020-01-15 08:54] VITALS: BMI 30.9
[2022-12-29 08:55] VITALS: BP 168/100; PULSE 85; RESP 14; TEMP 36.1; O2SAT 97; BMI 33.7
--- NOTE | 2022-12-29 09:11 | VDLE_ITS ---
Reason For Study: PAIN RIGHT CFV is compressible, spontaneous, phasic, competent and demonstrates normal augmentation. FV is compressible, spontaneous, phasic, competent and demonstrates normal augmentation. POP V is compressible, spontaneous, phasic, competent and demonstrates normal augmentation. T/P Trunk is compressible. PTV is compressible. RT PerV is compressible. RT GSV is patent and compressible from prox calf to SFJ. RT GSV from prox calf to ankle is DILATED & NON-COMPRESSIBLE. VARICOSITIES noted in the medical calf area. are NON-COMPRESSIBLE & DILATED. Procedure This is a venous duplex using B-mode, color flow and spectral Doppler. Exam performed portable in ED. The exam was diagnostic. A preliminary report was called and/or faxed to ED. VL/Venous Duplex US, Unilateral Interpretation Summary Superficial thrombophlebitis right great saphenous vein from the proximal calf to the ankle. Superficial thrombophlebitis varicosities of the right medial calf No evidence for acute deep venous thrombosis. Ordering Physician: Naa Shirley Referring Physician: Edgar, Performed By: Corrine Soni, KERRI, RVT
--- NOTE | 2022-12-29 09:12 | ED.VIS.LOWEX ---
HPI History of Present Illness Chief Complaint: Lower Extremity Injury Informant: patient Narrative Narrative: Patient is a 52-year-old female with history of varicose veins and breast cancer (treated with adjuvant radiation therapy) currently in remission presenting with pain and swelling of her right medial calf. Patient states when she got out of bed yesterday she had some stinging sensation in her right calf however it dissipated. She states she was at a pottery wheel throughout the day but was getting up and down. Yesterday evening around 930 she had increased pain. States the pain kept her up throughout the night. She did not take any for pain. She has associated redness, swelling and pain of the area. Denies any other symptoms such as fever, chills, chest pain, shortness of breath or difficulty breathing. Denies a history of DVT or PE. Denies any clotting or bleeding issues that she is aware of. No other complaints at this time. [facility] Medical History Abnormal ultrasound of breast Basal cell carcinoma Breast cancer Plantar fasciitis Seasonal allergies Home Medications cetirizine 10 mg tablet 10 mg PO PRN PRN Allergies 10/08/19 [History Last Taken Unknown] magnesium 200 mg tablet 200 mg PO DAILY 11/15/22 [History Last Taken Unknown] cholecalciferol (vitamin D3) 50 mcg (2,000 unit) capsule 4,000 unit PO DAILY #90 caps 11/23/22 [Rx Last Taken Unknown] tamoxifen 20 mg tablet 20 mg PO DAILY #90 tabs 11/23/22 [Rx Last Taken Unknown] Allergy/AdvReac Type Severity Reaction Status Date / Time doxycycline Allergy Mild Unknown Verified 12/29/22 08:55 prochlorperazine Allergy Mild Unknown Verified 12/29/22 08:55 [From Compazine] adhesive tape Allergy Rash Verified 12/29/22 08:55 Family History Mother Heart disease Hypertension Breast cancer, Onset Age: 74 Father Heart disease Hypertension Brother Cancer melanoma Heart disease Sister Diabetes Hypertension Heart disease Surgical History History of laparoscopic appendectomy History of lumpectomy of right breast Hx laparoscopic cholecystectomy Hx of tubal ligation S/P Mohs surgery for basal cell carcinoma Status post Achilles tendon repair Social History Smoking Status: Never smoker alcohol intake: never substance use type: does not use what type of physical activity do you participate in: none ROS ROS ED Constitutional Constitutional ED: Denies chills or fever(s) Eyes Eyes: Denies change in vision Cardiovascular Cardiovascular: Denies chest pain or palpitations Respiratory/Chest Respiratory/Chest: Denies cough, dyspnea or dyspnea on exertion Gastrointestinal Gastrointestinal: Denies abdominal pain Musculoskeletal Musculoskeletal: Reports other Details: Right calf pain ; Denies arthralgias or myalgias Integumentary Reports rash Neurologic Neurologic: Denies headache(s), paresthesias or weakness Psychiatric Psychiatric: Denies anxiety Hematologic/Lymphatic Hematologic/Lymphatic: Denies easy bleeding or easy bruising EXAM Physical Exam Const Vital Signs: 12/29/22 08:55 Temperature 97 F L Temperature Source Temporal Pulse Rate 85 Respiratory Rate 14 Blood Pressure 168/100 H Blood Pressure Mean 122 Pulse Ox 97 Oxygen Delivery Method Room Air Positive well nourished and well developed General Appearance ED: well developed and NAD HEENT Reports moist mucous membranes Neck full ROM and supple Chest Wall inspection of chest normal and palpation of chest normal Resp normal respiratory effort and clear to auscultation bilaterally Cardio regular rate, regular rhythm and no murmurs GI non-distended Extremity full ROM Extremity Narrative: Normal gait. Localized area of erythema and warmth of the right medial calf that extends approximately. It is overriding a varicose vein that is tender to palpation. Neuro oriented x3 and moves all extremities Sensorium / Orientation: alert Motor Exam: Negative for general weakness Psych mental status grossly normal Skin no wounds Skin Narrative: Erythema and warmth of the right proximal/medial calf approximately 6 cm x 2 cm. No signs of stated fluctuance. No vesicular rash appreciated. MDM MDM MDM Narrative Medical decision making narrative: Patient's evaluated for atraumatic right leg pain and redness. Differential includes DVT versus superficial thrombophlebitis. Clinically do not suspect cellulitis. Patient is given a dose of Motrin. Will obtain a right upper quadrant ultrasound. Patient has no shortness of breath, exercise intolerance dyspnea on exertion to suggest a pulmonary emboli. She is 97% on room air with a normal heart rate. Ultrasound is consistent with superficial thrombophlebitis with clot of the right greater saphenous vein from the proximal calf to the medial calf. No DVT is present. Patient has improvement of pain with ibuprofen. No other concerns. Counseled on symptomatic treatment of this including NSAIDs and warm compresses. Encouraged to use compression stockings. Is given referral for Dr. Rivera if she would like to follow-up further with vascular surgery for her varicose veins. Encouraged also follow-up with her primary care doctor. Counseled that if her symptoms do not improve or worsen she could go on to develop a DVT and to be on the look out for that. Patient and verbalized agreement understand this plan. Discharged home in stable and improved condition. Discharge Plan Triage Chief Complaint: Lower Extremity Injury ED Provider: Naa Shirley Dx/Rx/DC Orders Clinical Impression: Superficial thrombophlebitis, Varicose veins of right lower extremity Instructions: ED Thrombophlebitis, Superficial Prescriptions: No Action magnesium 200 mg tablet 200 mg PO DAILY cetirizine 10 MG tablet 10 mg PO PRN PRN (Reason: Allergies) cholecalciferol (vitamin D3) 50 mcg (2,000 unit) capsule 4,000 unit PO DAILY Qty: 90 4RF tamoxifen 20 mg tablet 20 mg PO DAILY Qty: 90 3RF Primary Care Provider: Иван Hernández Referrals: Иван Hernández DO [Primary Care Provider] - Gerardo Rivera MD [Med Staff - Active Staff] - As Needed Activity Restrictions/Additional Instructions: Take ibuprofen regularly to help with the inflammation. Use warm compresses. Use compression stockings. Please follow-up with your primary care doctor. If you like a further evaluation for varicose veins or have further concerns/issues you been given referral to vascular surgery. Disposition Disposition: Home, Self Care
[2022-12-29] MEDS: Ibuprofen 600 MG Tablet PO (09:18)
[2022-12-29 11:28] VITALS: RESP 16
== END 2022-12-29 11:29 | disposition home or self-care (01) ==
PROVIDERS: Emergency Provider Emergency Medicine; PCP Family Medicine; Visit Provider Emergency Medicine
DX: I83.91 Asymptomatic varicose veins of right lower extremity (principal); I80.01 Phlebitis and thrombophlebitis of superficial vessels of right lower extremity; Z85.3 Personal history of malignant neoplasm of breast
CPT/HCPCS: 93971; 99282

== ENCOUNTER → 2023-06-18 | Outpatient (CLI) | payer SELFPAY ==
[2020-01-15 08:54] VITALS: BMI 30.9
--- NOTE | 2023-06-18 09:13 | BI_ITS ---
MAMMOGRAPHY - BILATERAL SCREENING REASON FOR EXAM: Female, 53 years old. Routine annual screening examination. PERTINENT HISTORY: Personal history of breast cancer. Prior right lumpectomy with radiation treatment. Mother with breast cancer. TECHNIQUE: Digital bilateral breast abbi (3D mammographic acquisition) in the CC and MLO projections. 2-D mediolateral oblique (MLO) and craniocaudad (CC) views of both breasts were obtained. CAD: Full Field Digital Mammography with Computer Added Detection was performed. COMPARISON: Comparison is made with prior study June 15, 2022 and August 22, 2021. FINDINGS: Breast Composition: The breasts are heterogeneously dense, which may obscure small masses. There are no dominant masses or suspicious calcifications. The patient status post lumpectomy in the deep upper lateral aspect of the right breast with resultant postoperative scarring and architectural distortion. There is overlying skin thickening. Surgical clips are seen in the right axilla. No other significant abnormalities are identified. There has been no significant change since the prior study. BI/SCRN MAMM (CAD)W/ABBI BILAT IMPRESSION: Stable bilateral screening mammogram. Yearly follow-up mammogram recommended. (A) ASSESSMENT CATEGORY: BIRADS Category 2: Benign. A letter regarding these results will be sent to the patient by the facility within 30 days. Approximately 10% of breast cancers are not detected by mammography. A normal mammogram should not delay biopsy of a clinically suspicious abnormality. [id number] Electronically Signed: Terell Renee MD at 13:45 EDT ,
== END | disposition home or self-care (01) ==
LOC: OPBI 09:09
PROVIDERS: PCP Family Medicine; Referring Provider Student in an Organized Health Care Education/Training Program; Visit Provider Student in an Organized Health Care Education/Training Program
DX: Z12.31 Encounter for screening mammogram for malignant neoplasm of breast (principal); Z80.3 Family history of malignant neoplasm of breast; Z85.3 Personal history of malignant neoplasm of breast
CPT/HCPCS: 77063; 77067

== ENCOUNTER → 2024-06-25 | Outpatient (CLI) | payer SELFPAY ==
[2020-01-15 08:54] VITALS: BMI 30.9
--- NOTE | 2024-06-25 09:29 | BI_ITS ---
MAMMOGRAPHY - BILATERAL SCREENING REASON FOR EXAM: Female, 54 years old. Routine annual screening examination. PERTINENT HISTORY: Personal history of breast cancer. Prior right lumpectomy with radiation treatment. Mother with breast cancer. TECHNIQUE: Digital bilateral breast abbi (3D mammographic acquisition) in the CC and MLO projections. 2-D mediolateral oblique (MLO) and craniocaudad (CC) views of both breasts were obtained. CAD: Full Field Digital Mammography with Computer Added Detection was performed. COMPARISON: Comparison is made with prior study June 18, 2023 and June 15, 2022. FINDINGS: Breast Composition: The breasts are heterogeneously dense, which may obscure small masses. There are no dominant masses or suspicious calcifications. Once again, the patient is status post lumpectomy in the deep upper lateral aspect of the right breast with resultant postoperative scarring and architectural distortion. Surgical clips are seen in the right axilla. No other significant abnormalities are identified. There has been no significant change since the prior study. BI/SCRN MAMM (CAD)W/ABBI BILAT IMPRESSION: Stable bilateral screening mammogram. Yearly follow-up mammogram recommended. (A) ASSESSMENT CATEGORY: BIRADS Category 2: Benign. A letter regarding these results will be sent to the patient by the facility within 30 days. Approximately 10% of breast cancers are not detected by mammography. A normal mammogram should not delay biopsy of a clinically suspicious abnormality. [id number] Electronically Signed: Treell Renee MD at 10:19 EDT ,
== END | disposition home or self-care (01) ==
LOC: OPBI 09:26
PROVIDERS: PCP Family Medicine; Referring Provider Family Medicine; Visit Provider Family Medicine
DX: Z12.31 Encounter for screening mammogram for malignant neoplasm of breast (principal); Z80.3 Family history of malignant neoplasm of breast; Z85.3 Personal history of malignant neoplasm of breast
CPT/HCPCS: 77063; 77067

== ENCOUNTER 2024-10-16 10:03 | Emergency (ER) | payer OTHER, SELFPAY ==
[2020-01-15 08:54] VITALS: BMI 30.9
[2024-10-16 10:04] VITALS: BP 201/107; PULSE 80; RESP 16; TEMP 36.4; O2SAT 98; BMI 33.0
--- NOTE | 2024-10-16 10:24 | CT_ITS ---
STUDY: CT FACIAL BONES WITHOUT CONTRAST REASON FOR EXAM: Female, 54 years old. R max sinus fx with orbital muscle entrapment due to a fall. RADIATION DOSAGE (If Supplied By Facility): CTDIvol = ( 29.38 ) mGy, DLP = ( 547.46 ) mGycm TECHNIQUE: The patient was scanned in a multi detector CT scanner. Sagittal and coronal images were reconstructed. Individualized dose optimization techniques were used for this CT. COMPARISON: None. FINDINGS: Diffuse soft tissue swelling and the subcutaneous emphysema overlying the right orbital region extending into the right maxillary region as well as the infratemporal fossa. Small amount of air is seen along the right pterygoid fossa. Findings suggestive of a nondisplaced fracture of the floor of the right orbit. Minimal entrapment of the inferior orbital muscle is seen. Normal nasal bones and anterior nasal spine. Normal facial bones. There is no demonstrated fracture. Pansinusitis. CT/Sinus/Facial Bone IMPRESSION: Findings suggestive of a subtle fracture of the floor of the right orbit with minimal entrapment of the inferior articular muscle as described. Pansinusitis. Subcutaneous emphysema overlying the right orbital region as well as the right infratemporal fossa and pterygoid fossa. Electronically Signed: Terell Renee MD at 11:01 EST ,
--- NOTE | 2024-10-16 10:24 | CT_ITS ---
STUDY: CT BRAIN WITHOUT CONTRAST REASON FOR EXAM: Female, 54 years old. Facial injury. RADIATION DOSAGE (If Supplied By Facility): CTDIvol = ( 44.99 ) mGy, DLP = ( 779.24 ) mGycm TECHNIQUE: Transaxial CT imaging of the brain was performed without administration of intravenous contrast material. Individualized dose optimization techniques were used for this CT. COMPARISON: No relevant priors. FINDINGS: Normal soft tissue structures. Normal calvarium. Normal size ventricles and extra-axial spaces for the patient''s age. Normal white matter tracts of the cerebral hemispheres. Normal basal ganglia and thalami. Normal brainstem. Normal cerebellum. There is no intracranial hemorrhage. There are no findings of an acute ischemic infarction. Cruz sinusitis. Subcutaneous emphysema overlying the right orbit as well as a right maxillary and infratemporal fossa. Small amount of air is also seen in the posterior glenoid fossa. CT/Brain/Head without Contrast IMPRESSION: Normal unenhanced CT scan of the brain. Pansinusitis with subcutaneous emphysema overlying the right orbital and periorbital region as described. Electronically Signed: Terell Renee MD at 11:03 EST ,
--- NOTE | 2024-10-16 10:24 | CT_ITS ---
STUDY: CT CERVICAL SPINE WITHOUT CONTRAST REASON FOR EXAM: Female, 54 years old. injury RADIATION DOSAGE (If Supplied By Facility): CTDIvol = ( 23.97 ) mGy, DLP = ( 501.39 ) mGycm TECHNIQUE: High resolution transaxial imaging was performed without contrast material. Sagittal and coronal images were reconstructed. Individualized dose optimization techniques were used for this CT. COMPARISON: None FINDINGS: Normal craniovertebral junction. Normal anterior atlantoaxial articulation. Normal odontoid process. There is straightening of the normal cervical lordosis. Normal vertebral bodies and posterior osseous elements. C2-3: Normal endplates. Normal disc height and morphology. Normal central canal and intervertebral neuroforamina. C3-4: Normal endplates. Normal disc height and morphology. Normal central canal and intervertebral neuroforamina. C4-5: Normal endplates. Normal disc height and morphology. Normal central canal and intervertebral neuroforamina. C5-6: Moderate degree of disc space narrowing. Uncovertebral arthrosis. Bilateral neural foraminal stenosis worse on the left side. C6-7: Normal endplates. Normal disc height and morphology. Normal central canal and intervertebral neuroforamina. C7-T1: Normal endplates. Normal disc height and morphology. Normal central canal and intervertebral neuroforamina. Soft tissue emphysema as described on prior examinations. CT/Spine Cervical without Contras IMPRESSION: Multilevel degenerative changes, as described above. Electronically Signed: Terell Renee MD at 11:04 [facility] ,
--- NOTE | 2024-10-16 10:24 | EX.ED.DYSGE1 ---
HPI History of Present Illness Chief Complaint: Head Injury Informant: patient Narrative Narrative: 54-year-old female states that yesterday she fell going on the stairs injuring the right side of her face. No loss of consciousness. She notes some soreness on the bilateral sides of her neck with movement. She states about 30 minutes after the fall she blew her nose and had immediate swelling on the right orbital region. She states that she needed to blow her nose again and the face swelled. No nausea vomiting. She states she is not on a blood thinner. She notes that she has been having some sinusitis and was recently treated with azithromycin. Last dose about 5 days ago [facility] Medical History DVT (deep venous thrombosis) Plantar fasciitis Seasonal allergies Breast cancer Abnormal ultrasound of breast Basal cell carcinoma Home Medications ?Medication ?Instructions ?Recorded ?Last Taken ?Type cholecalciferol (vitamin D3) 50 4,000 unit PO DAILY #90 caps 11/23/22 Unknown Rx mcg (2,000 unit) capsule krill oil 500 mg capsule 1,500 mg PO DAILY 03/15/23 Unknown History magnesium 200 mg tablet 200 mg PO DAILY 03/15/23 Unknown History vitamin D3 250 mcg (10,000 1 cap PO DAILY 03/15/23 Unknown History unit)-vitamin K2 45 mcg capsule methylsulfonylmethane 1,000 mg 900 mg PO TID 08/24/23 Unknown History tablet (MSM) cetirizine 10 mg tablet 10 mg PO PRN Allergies 08/27/23 Unknown History tamoxifen 20 mg tablet 20 mg PO DAILY #90 tabs 12/19/23 Unknown Rx amoxicillin 875 mg-potassium 875 mg PO Q12H #20 TABLETS 10/16/24 Unknown Rx clavulanate 125 mg tablet Allergy/AdvReac Type Severity Reaction Status Date / Time doxycycline Allergy Mild Unknown Verified 10/16/24 10:07 prochlorperazine (From Allergy Mild Unknown Verified 10/16/24 10:07 Compazine) adhesive tape Allergy Rash Verified 10/16/24 10:07 Family History Mother Heart disease Hypertension Breast cancer, Onset Age: 74 Cancer renal - had 1 kidney removed Father Heart disease Hypertension Brother Cancer melanoma Heart disease Sister Diabetes Hypertension Heart disease Surgical History Hx of tubal ligation History of lumpectomy of right breast S/P Mohs surgery for basal cell carcinoma Status post Achilles tendon repair History of laparoscopic appendectomy Hx laparoscopic cholecystectomy Social History Smoking Status: Never smoker alcohol intake: never substance use type: does not use what type of physical activity do you participate in: none ROS ROS ED Constitutional Constitutional ED: Denies chills or weight loss Eyes Eyes: Denies blurry vision, change in vision or diplopia ENT ENT ED: Reports rhinorrhea and other Details: Facial pain and swelling ; Denies ear pain or sore throat Cardiovascular Cardiovascular: Denies chest pain, orthopnea, palpitations or racing heartbeat Respiratory/Chest Respiratory/Chest: Denies cough, dyspnea or orthopnea Gastrointestinal Gastrointestinal: Denies abdominal pain, diarrhea, nausea or vomiting Genitourinary Genitourinary ED: Denies dysuria, hematuria or urinary frequency Musculoskeletal Musculoskeletal: Reports neck pain; Denies arthralgias or myalgias Integumentary Denies abscess or rash Neurologic Neurologic: Reports headache(s); Denies weakness Psychiatric Psychiatric: Denies anxiety, depression, suicidal ideation or suicidal thoughts Endocrine Endocrinology: Denies polydipsia, polyphagia or polyuria Allergic/Immunologic Allergic/Immunologic ED: Denies mouth swelling, tongue swelling or urticaria EXAM Physical Exam Const Vital Signs: 10/16/24 10:04 10/16/24 10:34 10/16/24 12:03 Temperature 97.5 F L Temperature Source Temporal Pulse Rate 80 89 Respiratory Rate 16 18 Respiratory Effort Normal Non-Labored Respiratory Depth Normal Respiratory Pattern Normal Blood Pressure 201/107 H 161/82 H Blood Pressure Mean 138 108 Pulse Ox 98 93 Oxygen Delivery Method Room Air Room Air Positive well nourished and well developed General Appearance ED: well developed HEENT Reports normocephalic, TM's clear and moist mucous membranes HEENT Narrative: There is right maxillary sinus periorbital swelling with subcutaneous emphysema particularly laterally. Tympanic Membrane ED: Yes TM's clear Eyes PERRL Eyes Narrative: I am able to open the eyelids. Patient has pain when I ask her to look up. She is extraocular motion she has pain with garrido. I do not appreciate a hyphema. Anterior chamber appears deep and quiet. States no subconjunctival, nausea Neck no lymphadenopathy, supple and no JVD Neck Narrative: Mild tenderness to palpation diffusely of the posterior aspect of the neck. Full range of motion however. Resp normal respiratory effort and clear to auscultation bilaterally Cardio regular rate, regular rhythm and no murmurs GI normal to inspection, nondistended, normoactive bowel sounds and non-tender Palpation: soft Back/Spine no CVA tenderness and normal ROM Extremity normal to inspection General Extremety ED: Negative for edema General Extremity: Negative for edema Neuro oriented x3 and CN's II-XII intact bilaterally Sensorium / Orientation: alert Motor Exam: strength 5/5 throughout Psych mental status grossly normal Mood & Affect: Negative for depressed or tearful Skin no rashes or lesions noted and no wounds MDM MDM MDM Narrative Medical decision making narrative: Differential diagnosis includes skull fracture cervical spine fracture cervical myofascial strain acute concussion intracranial hemorrhage hematoma facial fracture cervical muscle entrapment sinusitis ocular trauma CT of the brain facial bones and cervical spine were obtained. These were read by radiology and reviewed by myself. I spoke with Dr. Gaffney from plastic surgery who came and evaluated the patient. We believe that the patient can be discharged home on Augmentin with instructions to follow-up with plastic surgery in the office next week as well as allergy. Patient cleared Rob[place]am elevated. She is declining pain medication midline History & Record Review Discussion w/independent historian: Patient and Family Radiography Diagnostic Testing: Clinical Impression(s) from Imaging Studies Brain CT 10/16/24 10:24 IMPRESSION: Normal unenhanced CT scan of the brain. Pansinusitis with subcutaneous emphysema overlying the right orbital and periorbital region as described. Electronically Signed: Terell Renee MD at 11:03 EST , Cervical Spine CT 10/16/24 10:24 IMPRESSION: Multilevel degenerative changes, as described above. Electronically Signed: Terell Renee MD at 11:04 EST , Facial/Sinus 10/16/24 10:24 IMPRESSION: Findings suggestive of a subtle fracture of the floor of the right orbit with minimal entrapment of the inferior articular muscle as described. Pansinusitis. Subcutaneous emphysema overlying the right orbital region as well as the right infratemporal fossa and pterygoid fossa. Electronically Signed: Terell Renee MD at 11:01 EST , Discharge Plan Triage Chief Complaint: Head Injury ED Provider: Tyron Kwan Dx/Rx/DC Orders Clinical Impression: Fall, Subcutaneous emphysema, Fracture of inferior orbital wall, Sinusitis Instructions: ED Facial Fracture, ED Sinusitis (Antibiotic Treatment) Prescriptions: New amoxicillin-pot clavulanate 875-125 mg tablet 875 mg PO Q12H Qty: 20 0RF No Action magnesium 200 mg tablet 200 mg PO DAILY Rx Instructions: takes 225mg x3 tablets at bedtime methylsulfonylmethane [MSM] 1,000 mg tablet 900 mg PO TID vitamin D3-vitamin K2 250 mcg (10,000 unit)-45 mcg capsule 1 cap PO DAILY Rx Instructions: vitamin D3 125mcg and vitamin K2 45mcg krill oil 500 mg capsule 1,500 mg PO DAILY cetirizine 10 mg tablet 10 mg PO PRN cholecalciferol (vitamin D3) 50 mcg (2,000 unit) capsule 4,000 unit PO DAILY Qty: 90 4RF tamoxifen 20 mg tablet 20 mg PO DAILY Qty: 90 4RF Primary Care Provider: Иван Hernández Referrals: Иван Hernández DO [Primary Care Provider] - Wilfredo Gaffney MD [Med Staff - Active Staff] - As soon as possible (next week call for appointment) Stephane Rodarte MD [Med Staff - Active Staff] - As soon as possible (for ophthalmology) Print Language: Bengali
[2024-10-16 12:03] VITALS: BP 161/82; PULSE 89; RESP 18; O2SAT 93
--- NOTE | 2024-10-16 12:39 | CON.PCM.SX_ITS ---
Assessment & Plan Assessment/Plan (1) Fracture of inferior orbital wall: PLAN: I talked to the patient and her extensively about orbital floor fractures. I talked about concerning signs and symptoms of entrapment including nausea, vomiting, change in heart rate with extraocular movement, and gaze restriction. She is able to move her eyeball around and does not have gaze restriction, but does have some pain with extraocular movements and some diplopia. She is significantly swollen secondary to the nose blowing and subcutaneous emphysema. We also talked about no nose blowing, Afrin for nosebleeds, course of Augmentin, and sitting in a chair/sleeping in a chair for swelling. She was in agreement with this plan. We talked about how she is unlikely to have entrapment given her reassuring physical exam, and I reviewed the CT scan with her and her as well showing them the muscle and where the fracture is. I do think it is appropriate for an ophthalmology consultation (discussed with the emergency department) to check the globe (they were in agreement). Patient can follow-up with me for the fracture in 1 week in clinic Patient and her happy with the plan HPI Consult Data Date of Consult: 10/16/24 HPI Narrative HPI Narrative: ALETHA ROBB is a delightful 54-year-old female who had a mechanical fall yesterday in her home and sustained a right orbital floor fracture. She did not initially go to the emergency department until today when she blew her nose and noticed significant swelling on the right periorbital region that was alarming enough to present to the emergency department. She denies any nausea or vomiting. She does report some double vision. Denies have any any loose or missing teeth and has normal occlusion Patient is not a smoker. [facility] Medical History DVT (deep venous thrombosis) Plantar fasciitis Seasonal allergies Breast cancer Abnormal ultrasound of breast Basal cell carcinoma Home Medications ?Medication ?Instructions ?Recorded ?Last Taken ?Type cholecalciferol (vitamin D3) 50 4,000 unit PO DAILY #90 caps 11/23/22 Unknown Rx mcg (2,000 unit) capsule krill oil 500 mg capsule 1,500 mg PO DAILY 03/15/23 Unknown History magnesium 200 mg tablet 200 mg PO DAILY 03/15/23 Unknown History vitamin D3 250 mcg (10,000 1 cap PO DAILY 03/15/23 Unknown History unit)-vitamin K2 45 mcg capsule methylsulfonylmethane 1,000 mg 900 mg PO TID 08/24/23 Unknown History tablet (MSM) cetirizine 10 mg tablet 10 mg PO PRN Allergies 08/27/23 Unknown History tamoxifen 20 mg tablet 20 mg PO DAILY #90 tabs 12/19/23 Unknown Rx amoxicillin 875 mg-potassium 875 mg PO Q12H #20 TABLETS 10/16/24 Unknown Rx clavulanate 125 mg tablet Allergy/AdvReac Type Severity Reaction Status Date / Time doxycycline Allergy Mild Unknown Verified 10/16/24 10:07 prochlorperazine (From Allergy Mild Unknown Verified 10/16/24 10:07 Compazine) adhesive tape Allergy Rash Verified 10/16/24 10:07 Family History Mother Heart disease Hypertension Breast cancer, Onset Age: 74 Cancer renal - had 1 kidney removed Father Heart disease Hypertension Brother Cancer melanoma Heart disease Sister Diabetes Hypertension Heart disease Surgical History Hx of tubal ligation History of lumpectomy of right breast S/P Mohs surgery for basal cell carcinoma Status post Achilles tendon repair History of laparoscopic appendectomy Hx laparoscopic cholecystectomy Social History Smoking Status: Never smoker alcohol intake: never substance use type: does not use what type of physical activity do you participate in: none Physical Exam Narrative Cranial nerve exam: Cranial nerve II: visual acuity intact. No changes in color interpretation. Cranial nerves III, IV and : extraocular movements intact with regards to the H test (no restriction), she does have some diplopia with extraocular movements. When I have her case vertically, she is able to do so and does not show any restriction but has some dull pain. There was no drop in heart rate with extraocular movements and there was no nausea with extraocular movements. Cranial nerve V: sensation to light touch intact in all 3 distributions of cranial nerve V. Cranial nerve VII: Patient is able to raise eyebrows, closes eyes, smile, purse lips, and move his lower lip to show his lower teeth symmetrically on both sides. Normal occlusion No lacerations just a small abrasion on the right side of the face on the right forehead/tenriism area Significant right periorbital swelling. No septal hematoma No C-spine tenderness Const alert and oriented x3 Imaging Radiology Impression Brain CT 10/16/24 10:24 IMPRESSION: Normal unenhanced CT scan of the brain. Pansinusitis with subcutaneous emphysema overlying the right orbital and periorbital region as described. Electronically Signed: Terell Renee MD at 11:03 EST , Cervical Spine CT 10/16/24 10:24 IMPRESSION: Multilevel degenerative changes, as described above. Electronically Signed: Terell Renee MD at 11:04 EST , Facial/Sinus 10/16/24 10:24 IMPRESSION: Findings suggestive of a subtle fracture of the floor of the right orbit with minimal entrapment of the inferior articular muscle as described. Pansinusitis. Subcutaneous emphysema overlying the right orbital region as well as the right infratemporal fossa and pterygoid fossa. Electronically Signed: Terell Renee MD at 11:01 EST , CT face: I personally examined the CT face. There is a fracture of the inferior posterior right orbital floor with displacement of the floor into the sinus. There appears to be some space and no signs of entrapment of the muscle (inferior rectus), although the fracture is adjacent to the inferior rectus. Charges/Coding Visit Charges Office Visits / Consults: 05207 OV L5 New 60min
[2024-10-16 13:37] VITALS: BP 112/92; PULSE 82; RESP 14; TEMP 36.6; O2SAT 95
== END 2024-10-16 13:41 | disposition home or self-care (01) ==
PROVIDERS: Emergency Provider Emergency Medicine; PCP Family Medicine; Visit Provider Emergency Medicine
DX: T79.7XXA Traumatic subcutaneous emphysema, initial encounter (principal); S02.31XA Fracture of orbital floor, right side, initial encounter for closed fracture; J32.9 Chronic sinusitis, unspecified; W10.9XXA Fall (on) (from) unspecified stairs and steps, initial encounter; Z85.3 Personal history of malignant neoplasm of breast; Z98.51 Tubal ligation status; Z85.828 Personal history of other malignant neoplasm of skin; Z90.49 Acquired absence of other specified parts of digestive tract
CPT/HCPCS: 70450; 70486; 72125; 99282

== ENCOUNTER → 2025-03-31 | Outpatient (CLI) | payer SELFPAY ==
[2020-01-15 08:54] VITALS: BMI 30.9
[2025-03-31 12:46] LABS: Hematocrit 34.3 % (37-47); Hemoglobin 10.9 g/dL (12.0-15.0); Immature Granulocytes Count 0.020 X10^3/uL (0.0-0.0); Mean Corp Hgb Conc 31.8 g/dL (32-36); Mean Corpuscular Volume 87.5 fL (81-99); Mean Platelet Vol. 11.0 fl (6.2-12.0); NRBC Flagged by Analyzer 0 % (0-5); Platelet Count 325 K/mm3 (150-450); RBC Distribution Width CV 14.6 % (11.6-14.6); RBC Distribution Width SD 46.5 fl (35.1-43.9); Red Blood Count 3.92 M/mm3 (4.2-5.4); White Blood Count 5.6 K/mm3 (4.4-11.0)
[2025-03-31 13:11] LABS: AST(SGOT) 22 U/L (<=31); Alanine Aminotransfer ALT/SGPT 17 U/L (<=34); Albumin, Serum 4.0 g/dL (3.5-5.0); Alkaline Phosphatase 54 U/L (35-104); Anion Gap 12 (5-15); BUN 12 mg/dL (4-19); BUN/Creat Ratio 19.6 RATIO (10-20); Calcium,Total 8.8 mg/dL (7.6-11.0); Carbon Dioxide 21.6 mmol/L (21.0-32.0); Chloride 107 mmol/L (98-108); Cholesterol 194 mg/dL (<=200); Globulin 3.2 g/dL (2.2-4.2); Glucose 90 mg/dL (70-99); Low Density Lipoprotein Calc. 112 mg/dL; Potassium 4.3 mmol/L (3.3-5.1); Triglycerides 132 mg/dL; Very Low Density Lipoprotein 26 mg/dL (5-40); cholesterol:hdl ratio screen 3.50
== END | disposition home or self-care (01) ==
LOC: BIMLAB 09:42
PROVIDERS: PCP Family Medicine; Referring Provider Family Medicine; Visit Provider Family Medicine
DX: Z00.00 Encounter for general adult medical examination without abnormal findings (principal); D05.11 Intraductal carcinoma in situ of right breast
CPT/HCPCS: 36415; 80053; 80061; 85025

== ENCOUNTER → 2025-07-08 | Outpatient (CLI) | payer SELFPAY ==
[2020-01-15 08:54] VITALS: BMI 30.9
--- NOTE | 2025-07-08 08:45 | BI_ITS ---
EXAM: SCRN MAMM (CAD)W/ABBI BILAT DATE: 07/08/2025 CLINICAL HISTORY: F, Age 55 y/o , SCREENING Personal history of breast cancer. Prior right lumpectomy with radiation treatment. Mother with breast cancer. Aunt with breast cancer. TECHNIQUE: Procedure Code: [id number] Modality: MG Procedure: SCRN MAMM (CAD)W/ABBI BILAT COMPARISON: Prior exam(s) dated June 25, 2024.. FINDINGS: TISSUE DENSITY: The breasts are heterogeneously dense, which may obscure small masses. Bilateral Breast Mammographic Findings: No significant masses, calcifications or other abnormalities are identified. Once again, the patient is status post lumpectomy in the upper-outer quadrant of the right breast with resultant scarring at the operative site. Surgical clips are seen in the right axilla. No suspicious masses, areas of developing architectural distortion, or suspicious calcifications. There has been no significant interval change. BI/SCRN MAMM (CAD)W/ABBI BILAT IMPRESSION: Stable bilateral screening mammogram. OVERALL FINAL ASSESSMENT BI-RADS 2: BENIGN RECOMMENDATION: Routine annual follow-up in 1 Year Additional Recommendation none A letter with findings and recommendations will be mailed to the patient. Reading Location: [facility]
--- NOTE | 2025-07-08 08:45 | BI_ITS ---
EXAM: SCRN MAMM (CAD)W/ABBI BILAT DATE: 07/08/2025 CLINICAL HISTORY: F, Age 55 y/o , SCREENING Personal history of breast cancer. Prior right lumpectomy with radiation treatment. Mother with breast cancer. Aunt with breast cancer. TECHNIQUE: Procedure Code: [id number] Modality: MG Procedure: SCRN MAMM (CAD)W/ABBI BILAT COMPARISON: Prior exam(s) dated June 25, 2024.. FINDINGS: TISSUE DENSITY: The breasts are heterogeneously dense, which may obscure small masses. Bilateral Breast Mammographic Findings: No significant masses, calcifications or other abnormalities are identified. Once again, the patient is status post lumpectomy in the upper-outer quadrant of the right breast with resultant scarring at the operative site. Surgical clips are seen in the right axilla. No suspicious masses, areas of developing architectural distortion, or suspicious calcifications. There has been no significant interval change. BI/SCRN MAMM (CAD)W/ABBI BILAT IMPRESSION: Stable bilateral screening mammogram. OVERALL FINAL ASSESSMENT BI-RADS 2: BENIGN RECOMMENDATION: Routine annual follow-up in 1 Year Additional Recommendation none A letter with findings and recommendations will be mailed to the patient. Reading Location: [facility]
== END | disposition home or self-care (01) ==
PROVIDERS: PCP Family Medicine; Referring Provider Family Medicine; Visit Provider Family Medicine
DX: Z12.31 Encounter for screening mammogram for malignant neoplasm of breast (principal); Z85.3 Personal history of malignant neoplasm of breast; Z80.3 Family history of malignant neoplasm of breast; Z92.3 Personal history of irradiation
CPT/HCPCS: 77063; 77067